=== PATIENT | female | born 1960 | race Two or more races ===

== ENCOUNTER 2016-11-16 09:31 | Inpatient (IN) | payer SELFPAY ==
[~2016-11-16] VITALS: Ht 152.4 cm; Wt 84.8 kg
[~2016-11-16 09:31] MED LIST: ASPI81TA9 PO; HYDR15CR20 TP; LISI5TAB PO; METF850T PO
[2016-11-16] MEDS ORDERED: KETOROLAC TROMETHAMINE 30 MG/ML SYRINGE. IV ONE (10:00)
[2016-11-16] MEDS ORDERED: MORPHINE SULFATE 10 MG/ML VIAL. IV ONE (10:00)
[2016-11-16] MEDS ORDERED: IV NORMAL SALINE 1000ML BAG 1,000 ML IV ONE ×2 (10:00→13:30)
[2016-11-16] MEDS ORDERED: ONDANSETRON PF 4 MG/2 ML VIAL. IV ONE (10:00)
[2016-11-16 10:12] LABS: BILIRUBIN,URINE NEGATIVE (NEG); GLUCOSE,URINE >=1000 mg/dL (NEG); NITRITE,URINE NEGATIVE (NEG)
[2016-11-16 10:19] LABS: NEG OBC UR NEG; POS OBC UR POS
[2016-11-16 10:25] LABS: BASO # 0.1 x10^3/uL (0.0-0.2); BASO % 1 % (0-3); EOS % 2 % (0-3); HEMOGLOBIN 14.8 g/dL (12.0-15.5); LYMPH # 1.5 x10^3/uL (1.0-4.8); LYMPH % 28 % (24-48); MEAN CORPUSCULAR HEMOGLOBIN 31 pg (25-35); MEAN CORPUSCULAR HGB CONC 34 g/dL (31-37); MEAN CORPUSCULAR VOLUME 90 fL (79-100); MONO % 11 % (0-9); NEUT % 58 % (31-73); PLATELET COUNT 347 x10^3/uL (140-400); RED BLOOD COUNT 4.77 x10^6/uL (3.50-5.40); RED CELL DISTRIBUTION WIDTH 13.6 % (11.5-14.5); WHITE BLOOD COUNT 5.4 x10^3/uL (4.0-11.0)
[2016-11-16 10:27] LABS: CALCIUM 8.8 mg/dL (8.5-10.1); CREATININE 0.6 mg/dL (0.6-1.0); GFR 103.4; POTASSIUM 4.1 mmol/L (3.5-5.1)
[2016-11-16 10:28] LABS: BACTERIA,URINE FEW /HPF (0-FEW); PROTEIN,URINE NEGATIVE (NEG-TRACE); RBC,URINE RARE /HPF (0-2); SQUAMOUS EPITHELIAL CELL,UR FEW /LPF; WBC,URINE RARE /HPF (0-4)
[2016-11-16 10:33] LABS: ALBUMIN 3.9 g/dL (3.4-5.0); ALBUMIN/GLOBULIN RATIO 0.8 (1.0-1.7); TOTAL BILIRUBIN 0.3 mg/dL (0.2-1.0); TOTAL PROTEIN 8.5 g/dL (6.4-8.2)
--- NOTE | 2016-11-16 12:11 | RAD ---
EXAM: Abdomen sonogram. HISTORY: Right upper quadrant pain. TECHNIQUE: Sonographic imaging of the abdomen was performed. COMPARISON: None. FINDINGS: The exam is limited due to body habitus and bowel gas. There is hepatic steatosis. There is focal fatty sparing or trace fluid along the gallbladder fossa. The common bile duct is upper normal in caliber for patient age, measuring 5.5 mm. There is cholelithiasis. There is gallbladder wall thickening. The right kidney is unremarkable. The inferior vena cava is patent. The pancreas is obscured due to bowel gas. IMPRESSION: 1. Cholelithiasis with gallbladder wall thickening suggesting possible superimposed cholecystitis. 2. Hepatic steatosis with focal fatty sparing along the gallbladder fossa or trace pericholecystic fluid.
--- NOTE | 2016-11-16 12:58 | PHYS DOC ---
Past Medical History Past Medical History: Diabetes-Type II, Hypertension Past Surgical History: No Surgical History Alcohol Use: None Drug Use: None Adult General Chief Complaint Chief Complaint: FLANK PAIN HPI HPI Patient is a 55 year old female with history of diabetes type 2, hypertension, who presents today with a right upper quadrant abdominal pain for 1 month. Patient is also complaining of nausea and vomiting and subjective fevers. Patient states she was diagnosed with gallbladder problems last year. PCP local clinic. Patient is [place]ian-speaking interpretation is provided by the son. Review of Systems Review of Systems Constitutional: Subjective fever Eyes: Denies change in visual acuity, redness, or eye pain [] HENT: Denies nasal congestion or sore throat [] Respiratory: Denies cough or shortness of breath [] Cardiovascular: No additional information not addressed in HPI [] GI: Right upper quadrant abdominal pain, nausea and vomiting : Denies dysuria or hematuria [] Musculoskeletal: Denies back pain or joint pain [] Integument: Denies rash or skin lesions [] Neurologic: Denies headache, focal weakness or sensory changes [] Endocrine: Denies polyuria or polydipsia [] Current Medications Current Medications Current Medications Medications (Trade) Dose Ordered Sig/Joslyn Start Time Stop Time Status Last Admin Dose Admin Acetaminophen (Tylenol) 1,000 mg 1X ONCE 11/16/16 13:15 11/16/16 13:16 UNV Ketorolac Tromethamine (Toradol) 30 mg 1X ONCE 11/16/16 10:00 11/16/16 10:01 DC 11/16/16 10:12 30 MG Levofloxacin/ Dextrose (LEVAQUIN 750mg PREMIX) 150 ml @ 100 mls/hr Q24H 11/16/16 13:15 11/21/16 13:14 UNV Morphine Sulfate 5 mg 5 mg 1X ONCE 11/16/16 10:00 11/16/16 10:01 DC 11/16/16 10:12 5 MG Ondansetron HCl (Zofran) 4 mg 1X ONCE 11/16/16 10:00 11/16/16 10:01 DC 11/16/16 10:11 4 MG Sodium Chloride 500 ml @ 1,000 mls/hr PRN Q30MIN PRN 11/16/16 13:15 Sodium Chloride (Iv Sodium Chloride 0.9% 1000ml Bag) 1,000 ml @ 1,000 mls/hr 1X ONCE 11/16/16 10:00 11/16/16 10:59 DC 11/16/16 10:10 1,000 MLS/HR Allergies Allergies Allergies Coded Allergies Type Severity Reaction Last Updated Verified No Known Drug Allergies 09/28/15 No Physical Exam Physical Exam Constitutional: Well developed, well nourished, no acute distress, non-toxic appearance. [] HENT: Normocephalic, atraumatic, bilateral external ears normal, oropharynx moist, no oral exudates, nose normal. [] Eyes: PERRLA, EOMI, conjunctiva normal, no discharge. [] Neck: Normal range of motion, no tenderness, supple, no stridor. [] Cardiovascular:Heart rate regular rhythm, no murmur [] Lungs & Thorax: Bilateral breath sounds clear to auscultation [] Abdomen: Bowel sounds normal, soft, moderate right upper quadrant tenderness with positive Contreras sign, no masses, no pulsatile masses. No right lower quadrant pain or tenderness. Skin: Warm, dry, no erythema, no rash. [] Back: No tenderness, no CVA tenderness. [] Extremities: No tenderness, no cyanosis, no clubbing, ROM intact, no edema. [] Neurologic: Alert and oriented X 3, normal motor function, normal sensory function, no focal deficits noted. [] Psychologic: Affect normal, judgement normal, mood normal. [] Current Patient Data Vital Signs Vital Signs Date Time Temp Pulse Resp B/P Pulse Ox O2 Delivery O2 Flow Rate FiO2 11/16/16 12:39 89 16 114/56 96 Room Air 11/16/16 10:49 99.6 99.6 Lab Values Laboratory Tests Test 11/16/16 09:45 11/16/16 10:01 Urine Collection Type Unknown Urine Color Yellow Urine Clarity Clear Urine pH 6.0 Urine Specific [place] 1.025 Urine Protein Negativemg/dL (NEG-TRACE) Urine Glucose (UA) >=1000mg/dL (NEG) Urine Ketones (Stick) Negativemg/dL (NEG) Urine Blood Negative (NEG) Urine Nitrite Negative (NEG) Urine Bilirubin Negative (NEG) Urine Urobilinogen Dipstick 1.0mg/dL (0.2 mg/dL) Urine Leukocyte Esterase Negative (NEG) Urine RBC Rare/HPF (0-2) Urine WBC Rare/HPF (0-4) Urine Squamous Epithelial Cells Few/LPF Urine Bacteria Few/HPF (0-FEW) Urine Mucus Slight/LPF Urine Test Negative (NEG) White Blood Count 5.4x10^3/uL (4.0-11.0) Red Blood Count 4.77x10^6/uL (3.50-5.40) Hemoglobin 14.8g/dL (12.0-15.5) Hematocrit 43.0% (36.0-47.0) Mean Corpuscular Volume 90fL (79-100) Mean Corpuscular Hemoglobin 31pg (25-35) Mean Corpuscular Hemoglobin Concent 34g/dL (31-37) Red Cell Distribution Width 13.6% (11.5-14.5) Platelet Count 347x10^3/uL (140-400) Neutrophils (%) (Auto) 58% (31-73) Lymphocytes (%) (Auto) 28% (24-48) Monocytes (%) (Auto) 11% (0-9) H Eosinophils (%) (Auto) 2% (0-3) Basophils (%) (Auto) 1% (0-3) Neutrophils # (Auto) 3.1x10^3uL (1.8-7.7) Lymphocytes # (Auto) 1.5x10^3/uL (1.0-4.8) Monocytes # (Auto) 0.6x10^3/uL (0.0-1.1) Eosinophils # (Auto) 0.1x10^3/uL (0.0-0.7) Basophils # (Auto) 0.1x10^3/uL (0.0-0.2) Sodium Level 138mmol/L (136-145) Potassium Level 4.1mmol/L (3.5-5.1) Chloride Level 102mmol/L (98-107) Carbon Dioxide Level 26mmol/L (21-32) Anion Gap 10 (6-14) Blood Urea Nitrogen 7mg/dL (7-20) Creatinine 0.6mg/dL (0.6-1.0) Estimated GFR (Cockcroft-Gault) 103.4 BUN/Creatinine Ratio 12 (6-20) Glucose Level 96mg/dL (70-99) Calcium Level 8.8mg/dL (8.5-10.1) Total Bilirubin 0.3mg/dL (0.2-1.0) Aspartate Amino Transferase (AST) 75U/L (15-37) H Alanine Aminotransferase (ALT) 121U/L (14-59) H Alkaline Phosphatase 108U/L (46-116) Total Protein 8.5g/dL (6.4-8.2) H Albumin 3.9g/dL (3.4-5.0) Albumin/Globulin Ratio 0.8 (1.0-1.7) L Lipase 106U/L (73-393) Laboratory Tests 11/16/16 10:01 Laboratory Tests 11/16/16 10:01 EKG EKG [] Radiology/Procedures Radiology/Procedures []PROCEDURE: ABDOMEN LTD EXAM: Abdomen sonogram. HISTORY: Right upper quadrant pain. TECHNIQUE: Sonographic imaging of the abdomen was performed. COMPARISON: None. FINDINGS: The exam is limited due to body habitus and bowel gas. There is hepatic steatosis. There is focal fatty sparing or trace fluid along the gallbladder fossa. The common bile duct is upper normal in caliber for patient age, measuring 5.5 mm. There is cholelithiasis. There is gallbladder wall thickening. The right kidney is unremarkable. The inferior vena cava is patent. The pancreas is obscured due to bowel gas. IMPRESSION: 1. Cholelithiasis with gallbladder wall thickening suggesting possible superimposed cholecystitis. 2. Hepatic steatosis with focal fatty sparing along the gallbladder fossa or trace pericholecystic fluid. DICTATED and SIGNED BY: SIENNA KLEIN MD DATE: 11/16/16 0847 CC: STACIA HARLEY SHOPPING INSPECTOR; NO PCP ~ Course & Med Decision Making Course & Med Decision Making Pertinent Labs and Imaging studies reviewed. (See chart for details) Patient with history of gallbladder disease presents today with right upper quadrant abdominal pain and vomiting as well as subjective fevers for 1 month. Negative urine hCG, UA negative for infection. CBC with no acute findings, CMP with AST of 75 ALT 125, alkaline phosphatase 108. Patient's temperature on arrival to the ED was 100.2, heart rate 103, respiration 20 room air, blood pressure 170/79, O2 sats 95% on room air. Abdominal ultrasound is positive for possible superimposed cholecystitis. 12:[address] Ahn who will follow-up with patient for general surgery. 13:[address] Ochoa and patient was admitted Sepsis protocol was initiated with weight based IV fluids and IV antibiotics. Dragon Disclaimer Dragon Disclaimer This electronic medical record was generated, in whole or in part, using a voice recognition dictation system. Departure Departure Impression: Primary Impression: Sepsis Additional Impressions: Fever Cholecystitis, acute Tachycardia Disposition: ADMITTED INPATIENT Admitting Physician: Carlos Ochoa Condition: STABLE Referrals: NO PCP (PCP) Problem Qualifiers Primary Impression: Sepsis Sepsis type: sepsis due to unspecified organism Qualified Code: A41.9 - Sepsis, unspecified organism Additional Impressions: Fever Fever type: unspecified Qualified Code: R50.9 - Fever, unspecified STACIA HARLEY SHOPPING INSPECTOR Nov 16, 2016 12:58
[2016-11-16] MEDS ORDERED: ACETAMINOPHEN 500 MG TABLET PO ONE (13:15)
[2016-11-16] MEDS ORDERED: IV NORMAL SALINE 500ML BAG 500 ML IV PRN (13:15)
[2016-11-16] MEDS ORDERED: ONDANSETRON PF 4 MG/2 ML VIAL. IV PRN ×2 (13:30→18:30)
[2016-11-16] MEDS ORDERED: ACETAMINOPHEN 325 MG TABLET. PO PRN ×2 (13:30→18:30)
[2016-11-16] MEDS ORDERED: METRONIDAZOLE 500mg PREMIX 100 ML IV ONE (13:45)
[2016-11-16] MEDS: MORPHINE SULFATE 4 MG/ML DISP.SYRIN. IV PRN (14:09)
[2016-11-16] MEDS: IV NORMAL SALINE 1000ML BAG 1,000 ML IV SCH ×5 (14:31→20:30)
[2016-11-16 16:15] VITALS: BP 133/55
[2016-11-16 17:35] VITALS: BP 107/56
[2016-11-16] MEDS ORDERED: CEFAZOLIN 2GM PREMIX 50 ML IV SCH (17:45)
--- NOTE | 2016-11-16 17:45 | PDOC ---
SURGICAL PROGRESS NOTE Subjective Brief Surgery Consult 55 yo F with calculous cholecystitis TO OR in Am for lap farshad with grams R/B/A d/w pt and pt's family Thanks for consult! [id number] Vital Signs Vital Signs Date Time Temp Pulse Resp B/P Pulse Ox O2 Delivery O2 Flow Rate FiO2 11/16/16 15:34 83 18 107/56 98 Room Air 11/16/16 14:18 98.3 98.3 Labs Laboratory Tests Test 11/16/16 09:45 11/16/16 10:01 11/16/16 13:55 Urine Collection Type Unknown Urine Color Yellow Urine Clarity Clear Urine pH 6.0 Urine Specific [place] 1.025 Urine Protein Negativemg/dL (NEG-TRACE) Urine Glucose (UA) >=1000mg/dL (NEG) Urine Ketones (Stick) Negativemg/dL (NEG) Urine Blood Negative (NEG) Urine Nitrite Negative (NEG) Urine Bilirubin Negative (NEG) Urine Urobilinogen Dipstick 1.0mg/dL (0.2 mg/dL) Urine Leukocyte Esterase Negative (NEG) Urine RBC Rare/HPF (0-2) Urine WBC Rare/HPF (0-4) Urine Squamous Epithelial Cells Few/LPF Urine Bacteria Few/HPF (0-FEW) Urine Mucus Slight/LPF Urine Test Negative (NEG) White Blood Count 5.4x10^3/uL (4.0-11.0) Red Blood Count 4.77x10^6/uL (3.50-5.40) Hemoglobin 14.8g/dL (12.0-15.5) Hematocrit 43.0% (36.0-47.0) Mean Corpuscular Volume 90fL (79-100) Mean Corpuscular Hemoglobin 31pg (25-35) Mean Corpuscular Hemoglobin Concent 34g/dL (31-37) Red Cell Distribution Width 13.6% (11.5-14.5) Platelet Count 347x10^3/uL (140-400) Neutrophils (%) (Auto) 58% (31-73) Lymphocytes (%) (Auto) 28% (24-48) Monocytes (%) (Auto) 11% (0-9) Eosinophils (%) (Auto) 2% (0-3) Basophils (%) (Auto) 1% (0-3) Neutrophils # (Auto) 3.1x10^3uL (1.8-7.7) Lymphocytes # (Auto) 1.5x10^3/uL (1.0-4.8) Monocytes # (Auto) 0.6x10^3/uL (0.0-1.1) Eosinophils # (Auto) 0.1x10^3/uL (0.0-0.7) Basophils # (Auto) 0.1x10^3/uL (0.0-0.2) Sodium Level 138mmol/L (136-145) Potassium Level 4.1mmol/L (3.5-5.1) Chloride Level 102mmol/L (98-107) Carbon Dioxide Level 26mmol/L (21-32) Anion Gap 10 (6-14) Blood Urea Nitrogen 7mg/dL (7-20) Creatinine 0.6mg/dL (0.6-1.0) Estimated GFR (Cockcroft-Gault) 103.4 BUN/Creatinine Ratio 12 (6-20) Glucose Level 96mg/dL (70-99) Calcium Level 8.8mg/dL (8.5-10.1) Total Bilirubin 0.3mg/dL (0.2-1.0) Aspartate Amino Transf (AST/SGOT) 75U/L (15-37) Alanine Aminotransferase (ALT/SGPT) 121U/L (14-59) Alkaline Phosphatase 108U/L (46-116) Total Protein 8.5g/dL (6.4-8.2) Albumin 3.9g/dL (3.4-5.0) Albumin/Globulin Ratio 0.8 (1.0-1.7) Lipase 106U/L (73-393) Lactic Acid Level 0.9mmol/L (0.4-2.0) Procalcitonin 0.10ng/mL (0.00-0.10) Laboratory Tests Test 11/16/16 09:45 11/16/16 10:01 11/16/16 13:55 Urine Collection Type Unknown Urine Color Yellow Urine Clarity Clear Urine pH 6.0 Urine Specific [place] 1.025 Urine Protein Negativemg/dL (NEG-TRACE) Urine Glucose (UA) >=1000mg/dL (NEG) Urine Ketones (Stick) Negativemg/dL (NEG) Urine Blood Negative (NEG) Urine Nitrite Negative (NEG) Urine Bilirubin Negative (NEG) Urine Urobilinogen Dipstick 1.0mg/dL (0.2 mg/dL) Urine Leukocyte Esterase Negative (NEG) Urine RBC Rare/HPF (0-2) Urine WBC Rare/HPF (0-4) Urine Squamous Epithelial Cells Few/LPF Urine Bacteria Few/HPF (0-FEW) Urine Mucus Slight/LPF Urine Test Negative (NEG) White Blood Count 5.4x10^3/uL (4.0-11.0) Red Blood Count 4.77x10^6/uL (3.50-5.40) Hemoglobin 14.8g/dL (12.0-15.5) Hematocrit 43.0% (36.0-47.0) Mean Corpuscular Volume 90fL (79-100) Mean Corpuscular Hemoglobin 31pg (25-35) Mean Corpuscular Hemoglobin Concent 34g/dL (31-37) Red Cell Distribution Width 13.6% (11.5-14.5) Platelet Count 347x10^3/uL (140-400) Neutrophils (%) (Auto) 58% (31-73) Lymphocytes (%) (Auto) 28% (24-48) Monocytes (%) (Auto) 11% (0-9) Eosinophils (%) (Auto) 2% (0-3) Basophils (%) (Auto) 1% (0-3) Neutrophils # (Auto) 3.1x10^3uL (1.8-7.7) Lymphocytes # (Auto) 1.5x10^3/uL (1.0-4.8) Monocytes # (Auto) 0.6x10^3/uL (0.0-1.1) Eosinophils # (Auto) 0.1x10^3/uL (0.0-0.7) Basophils # (Auto) 0.1x10^3/uL (0.0-0.2) Sodium Level 138mmol/L (136-145) Potassium Level 4.1mmol/L (3.5-5.1) Chloride Level 102mmol/L (98-107) Carbon Dioxide Level 26mmol/L (21-32) Anion Gap 10 (6-14) Blood Urea Nitrogen 7mg/dL (7-20) Creatinine 0.6mg/dL (0.6-1.0) Estimated GFR (Cockcroft-Gault) 103.4 BUN/Creatinine Ratio 12 (6-20) Glucose Level 96mg/dL (70-99) Calcium Level 8.8mg/dL (8.5-10.1) Total Bilirubin 0.3mg/dL (0.2-1.0) Aspartate Amino Transf (AST/SGOT) 75U/L (15-37) Alanine Aminotransferase (ALT/SGPT) 121U/L (14-59) Alkaline Phosphatase 108U/L (46-116) Total Protein 8.5g/dL (6.4-8.2) Albumin 3.9g/dL (3.4-5.0) Albumin/Globulin Ratio 0.8 (1.0-1.7) Lipase 106U/L (73-393) Lactic Acid Level 0.9mmol/L (0.4-2.0) Procalcitonin 0.10ng/mL (0.00-0.10) Problem List Problems Medical Problems: (1) Cholecystitis, acute Status: Acute (2) Fever Status: Acute (3) Sepsis Status: Acute (4) Tachycardia Status: Acute Problems: BRITTANI KIRKPATRICK MD Nov 16, 2016 17:44
--- NOTE | 2016-11-16 18:20 | PDOC1 ---
History and Physical Past Medical History Cardiovascular: No pertinent hx, HTN Pulmonary: No pertinent hx GI: No pertinent hx Past Surgical History Past Surgical History: No pertinent history Family History Family History: Other (cancer brother, father, DM) Social History Smoke: No ALCOHOL: none Drugs: None Current Problem List Problem List Problems Medical Problems: (1) Cholecystitis, acute Status: Acute (2) Fever Status: Acute (3) Sepsis Status: Acute (4) Tachycardia Status: Acute Current Medications Current Medications Current Medications Medications (Trade) Dose Ordered Sig/Joslyn Start Time Stop Time Status Last Admin Dose Admin Acetaminophen (Tylenol) 1,000 mg 1X ONCE 11/16/16 13:15 11/16/16 13:21 DC Acetaminophen 650 mg 650 mg PRN Q4HRS PRN 11/16/16 13:30 11/17/16 13:29 Cefazolin Sodium/ Dextrose (Ancef 2gm Premix) 50 ml @ 100 mls/hr 1X PREOP 11/16/16 17:45 Ketorolac Tromethamine (Toradol) 30 mg 1X ONCE 11/16/16 10:00 11/16/16 10:01 DC 11/16/16 10:12 30 MG Levofloxacin/ Dextrose (LEVAQUIN 750mg PREMIX) 150 ml @ 100 mls/hr Q24H 11/16/16 14:00 11/21/16 13:59 11/16/16 15:25 100 MLS/HR Metronidazole 100 ml @ 100 mls/hr 1X ONCE 11/16/16 13:45 11/16/16 14:44 DC 11/16/16 14:09 100 MLS/HR Morphine Sulfate 4 mg PRN Q2HR PRN 11/16/16 13:30 11/17/16 13:29 11/16/16 14:09 4 MG Morphine Sulfate 5 mg 5 mg 1X ONCE 11/16/16 10:00 11/16/16 10:01 DC 11/16/16 10:12 5 MG Ondansetron HCl (Zofran) 4 mg PRN Q8HRS PRN 11/16/16 13:30 11/17/16 13:29 11/16/16 14:08 4 MG Sodium Chloride 1,000 ml @ 125 mls/hr 1X ONCE 11/16/16 13:30 11/16/16 21:29 Sodium Chloride (Iv Sodium Chloride 0.9% 1000ml Bag) 1,000 ml @ 1,000 mls/hr 1X ONCE 11/16/16 10:00 11/16/16 10:59 DC 11/16/16 10:10 1,000 MLS/HR Allergies Allergies Allergies Coded Allergies Type Severity Reaction Last Updated Verified No Known Drug Allergies 09/28/15 No ROS Review of System CONSTITUTIONAL: No fever or chills EYES: No recent changes SKIN: No rash or itching CARDIOVASCULAR: No chest pain, syncope, palpitations, or edema RESPIRATORY: No SOB or cough GASTROINTESTINAL: abdominal pain NEUROLOGICAL: No headaches or weakness ENDOCRINE: No cold or heat intolerance GENITOURINARY: No urgency or frequency of urination MUSCULOSKELETAL: No back pain or joint pain LYMPHATICS: No enlarged lymph nodes PSYCHIATRIC: No anxiety or depression Physical Exam Physical Exam GEN.: No apparent distress. Alert and oriented. HEENT: Head is normocephalic, atraumatic NECK: Supple. NO JVD LUNGS: Clear to auscultation. HEART: RRR, S1, S2 present. Peripheral pulses intact ABDOMEN: Soft, RUQ tender. Positive bowel sounds. EXTREMITIES: Without any cyanosis. NEUROLOGIC: Normal speech, normal tone PSYCHIATRIC: Normal affect, normal mood. SKIN: No ulcerations Vitals Vitals Vital Signs Date Time Temp Pulse Resp B/P Pulse Ox O2 Delivery O2 Flow Rate FiO2 11/16/16 17:35 98.3 83 107/56 98 98.3 11/16/16 17:21 Room Air 11/16/16 16:15 18 Labs Labs Laboratory Tests Test 11/16/16 09:45 11/16/16 10:01 11/16/16 13:55 Urine Collection Type Unknown Urine Color Yellow Urine Clarity Clear Urine pH 6.0 Urine Specific [place] 1.025 Urine Protein Negativemg/dL (NEG-TRACE) Urine Glucose (UA) >=1000mg/dL (NEG) Urine Ketones (Stick) Negativemg/dL (NEG) Urine Blood Negative (NEG) Urine Nitrite Negative (NEG) Urine Bilirubin Negative (NEG) Urine Urobilinogen Dipstick 1.0mg/dL (0.2 mg/dL) Urine Leukocyte Esterase Negative (NEG) Urine RBC Rare/HPF (0-2) Urine WBC Rare/HPF (0-4) Urine Squamous Epithelial Cells Few/LPF Urine Bacteria Few/HPF (0-FEW) Urine Mucus Slight/LPF Urine Test Negative (NEG) White Blood Count 5.4x10^3/uL (4.0-11.0) Red Blood Count 4.77x10^6/uL (3.50-5.40) Hemoglobin 14.8g/dL (12.0-15.5) Hematocrit 43.0% (36.0-47.0) Mean Corpuscular Volume 90fL (79-100) Mean Corpuscular Hemoglobin 31pg (25-35) Mean Corpuscular Hemoglobin Concent 34g/dL (31-37) Red Cell Distribution Width 13.6% (11.5-14.5) Platelet Count 347x10^3/uL (140-400) Neutrophils (%) (Auto) 58% (31-73) Lymphocytes (%) (Auto) 28% (24-48) Monocytes (%) (Auto) 11% (0-9) Eosinophils (%) (Auto) 2% (0-3) Basophils (%) (Auto) 1% (0-3) Neutrophils # (Auto) 3.1x10^3uL (1.8-7.7) Lymphocytes # (Auto) 1.5x10^3/uL (1.0-4.8) Monocytes # (Auto) 0.6x10^3/uL (0.0-1.1) Eosinophils # (Auto) 0.1x10^3/uL (0.0-0.7) Basophils # (Auto) 0.1x10^3/uL (0.0-0.2) Sodium Level 138mmol/L (136-145) Potassium Level 4.1mmol/L (3.5-5.1) Chloride Level 102mmol/L (98-107) Carbon Dioxide Level 26mmol/L (21-32) Anion Gap 10 (6-14) Blood Urea Nitrogen 7mg/dL (7-20) Creatinine 0.6mg/dL (0.6-1.0) Estimated GFR (Cockcroft-Gault) 103.4 BUN/Creatinine Ratio 12 (6-20) Glucose Level 96mg/dL (70-99) Calcium Level 8.8mg/dL (8.5-10.1) Total Bilirubin 0.3mg/dL (0.2-1.0) Aspartate Amino Transf (AST/SGOT) 75U/L (15-37) Alanine Aminotransferase (ALT/SGPT) 121U/L (14-59) Alkaline Phosphatase 108U/L (46-116) Total Protein 8.5g/dL (6.4-8.2) Albumin 3.9g/dL (3.4-5.0) Albumin/Globulin Ratio 0.8 (1.0-1.7) Lipase 106U/L (73-393) Lactic Acid Level 0.9mmol/L (0.4-2.0) Procalcitonin 0.10ng/mL (0.00-0.10) Laboratory Tests Test 11/16/16 09:45 11/16/16 10:01 11/16/16 13:55 Urine Collection Type Unknown Urine Color Yellow Urine Clarity Clear Urine pH 6.0 Urine Specific [place] 1.025 Urine Protein Negativemg/dL (NEG-TRACE) Urine Glucose (UA) >=1000mg/dL (NEG) Urine Ketones (Stick) Negativemg/dL (NEG) Urine Blood Negative (NEG) Urine Nitrite Negative (NEG) Urine Bilirubin Negative (NEG) Urine Urobilinogen Dipstick 1.0mg/dL (0.2 mg/dL) Urine Leukocyte Esterase Negative (NEG) Urine RBC Rare/HPF (0-2) Urine WBC Rare/HPF (0-4) Urine Squamous Epithelial Cells Few/LPF Urine Bacteria Few/HPF (0-FEW) Urine Mucus Slight/LPF Urine Test Negative (NEG) White Blood Count 5.4x10^3/uL (4.0-11.0) Red Blood Count 4.77x10^6/uL (3.50-5.40) Hemoglobin 14.8g/dL (12.0-15.5) Hematocrit 43.0% (36.0-47.0) Mean Corpuscular Volume 90fL (79-100) Mean Corpuscular Hemoglobin 31pg (25-35) Mean Corpuscular Hemoglobin Concent 34g/dL (31-37) Red Cell Distribution Width 13.6% (11.5-14.5) Platelet Count 347x10^3/uL (140-400) Neutrophils (%) (Auto) 58% (31-73) Lymphocytes (%) (Auto) 28% (24-48) Monocytes (%) (Auto) 11% (0-9) Eosinophils (%) (Auto) 2% (0-3) Basophils (%) (Auto) 1% (0-3) Neutrophils # (Auto) 3.1x10^3uL (1.8-7.7) Lymphocytes # (Auto) 1.5x10^3/uL (1.0-4.8) Monocytes # (Auto) 0.6x10^3/uL (0.0-1.1) Eosinophils # (Auto) 0.1x10^3/uL (0.0-0.7) Basophils # (Auto) 0.1x10^3/uL (0.0-0.2) Sodium Level 138mmol/L (136-145) Potassium Level 4.1mmol/L (3.5-5.1) Chloride Level 102mmol/L (98-107) Carbon Dioxide Level 26mmol/L (21-32) Anion Gap 10 (6-14) Blood Urea Nitrogen 7mg/dL (7-20) Creatinine 0.6mg/dL (0.6-1.0) Estimated GFR (Cockcroft-Gault) 103.4 BUN/Creatinine Ratio 12 (6-20) Glucose Level 96mg/dL (70-99) Calcium Level 8.8mg/dL (8.5-10.1) Total Bilirubin 0.3mg/dL (0.2-1.0) Aspartate Amino Transf (AST/SGOT) 75U/L (15-37) Alanine Aminotransferase (ALT/SGPT) 121U/L (14-59) Alkaline Phosphatase 108U/L (46-116) Total Protein 8.5g/dL (6.4-8.2) Albumin 3.9g/dL (3.4-5.0) Albumin/Globulin Ratio 0.8 (1.0-1.7) Lipase 106U/L (73-393) Lactic Acid Level 0.9mmol/L (0.4-2.0) Procalcitonin 0.10ng/mL (0.00-0.10) VTE Prophylaxis Ordered VTE Prophylaxis Devices: Yes VTE Pharmacological Prophylaxi: Yes ANA ANTOINE MD Nov 16, 2016 18:19
[2016-11-16] MEDS ORDERED: hydrALAZINE 20 MG/ML VIAL. IVP PRN (18:30)
[2016-11-16] MEDS ORDERED: ALBUTEROL SULFATE 2.5 MG/3 ML NEBU. NEB PRN (18:30)
[2016-11-16] MEDS ORDERED: HYDROCODONE/APAP 5/325MG TABLET. PO PRN (18:30)
--- NOTE | 2016-11-16 18:56 | HP ---
ADMIT DATE: 11/16/2016 CHIEF COMPLAINT: Abdominal pain. HISTORY OF PRESENT ILLNESS: A 55-year-old female patient with prior history of hypertension and questionable diabetes presented to the ER with complaints of abdominal pain present nearly for 1 month; however, pain got worse for last 1 day which is intractable in nature and also had episodes of nausea, vomiting and fever. Upon arrival to the ER, the patient was diagnosed with acute cholecystitis and cholelithiasis. The patient was admitted to the hospital for pain control and surgical consultation. The patient speaks Turkish. Family member, grandson at bedside who speaks good [place]ayan interpreted the patient's remarks. PAST MEDICAL HISTORY, REVIEW OF SYSTEMS, PHYSICAL EXAMINATION: Please see my electronic H and P. LABORATORY FINDINGS: 1. Sodium 138, potassium ____, carbon dioxide 23, anion gap 10, BUN is 7, creatinine 0.6, AST 75, ALT 121, alkaline phosphatase 108. 2. WBC 5.4, hemoglobin 14.8, MCV is 90, MCHC is 34, platelets 347. 3. Urine: Specific gravity 1.025, protein negative, nitrites negative, bilirubin negative. IMAGING STUDIES: Ultrasound of the abdomen showed cholelithiasis with gallbladder wall thickening suggestive of possible supraumbilical cystitis. ASSESSMENT: 1. Cholelithiasis with cholecystitis, present on admission. 2. Hypertension, currently normotensive. 3. Questionable history of diabetes mellitus. 4. Obesity, body mass index 39. PLAN: 1. The patient has been admitted to med/surg floor and continue IV fluids at least 75 mL per hour. 2. General surgery has been consulted. 3. The patient is on Flagyl and Levaquin IV. 4. Anticipated laparoscopic cholecystectomy by Dr. Ahn in a.m. 5. Pain control with morphine 2 mg q. 2 hours. 6. DVT prophylaxis. ANA ANTOINE MD DR: FATEMEH/terry JOB#: [id number] / [id number] LUIS ENRIQUE
[2016-11-16 19:05] VITALS: BP 140/69
[2016-11-16] MEDS: METRONIDAZOLE 500mg PREMIX 100 ML IV SCH (22:23)
[2016-11-16 23:05] VITALS: BP 112/56
[2016-11-17] VITALS (12 sets, daily range): BP systolic 103–147; BP diastolic 54–89
[2016-11-17] MEDS: METRONIDAZOLE 500mg PREMIX 100 ML IV SCH ×3 (05:55→22:31)
[2016-11-17 06:13] LABS: CALCIUM 7.6 mg/dL (8.5-10.1); CREATININE 0.6 mg/dL (0.6-1.0); GFR 103.4; POTASSIUM 4.2 mmol/L (3.5-5.1)
[2016-11-17 07:01] LABS: BASO # 0.1 x10^3/uL (0.0-0.2); BASO % 1 % (0-3); EOS % 0 % (0-3); HEMATOCRIT 37.6 % (36.0-47.0); HEMOGLOBIN 12.6 g/dL (12.0-15.5); LYMPH # 2.1 x10^3/uL (1.0-4.8); LYMPH % 35 % (24-48); MEAN CORPUSCULAR HEMOGLOBIN 31 pg (25-35); MEAN CORPUSCULAR HGB CONC 33 g/dL (31-37); MEAN CORPUSCULAR VOLUME 93 fL (79-100); MONO % 10 % (0-9); NEUT % 53 % (31-73); PLATELET COUNT 282 x10^3/uL (140-400); RED BLOOD COUNT 4.03 x10^6/uL (3.50-5.40); RED CELL DISTRIBUTION WIDTH 13.5 % (11.5-14.5)
--- NOTE | 2016-11-17 07:11 | CONS ---
DATE OF CONSULTATION: 11/16/2016 REFERRING PHYSICIANS: Dr. Ochoa. Ms. Stacia Wyatt. Thank you for consult. CHIEF COMPLAINT: Right upper quadrant abdominal pain. DIAGNOSIS: Calculus cholecystitis. PLANNED PROCEDURE: Laparoscopic cholecystectomy with intraoperative cholangiogram. HISTORY OF PRESENT ILLNESS: This is a 55-year-old female with known history of gallstones, presents with a month to month and half of intermittent complaints of right upper quadrant abdominal pain. This worsened to the point where she presented to the Emergency Room for evaluation. She actually reports her pain has resolved currently, but has been feeling pretty significant pain previously. She is accompanied by her supportive family. ALLERGIES: She has no known drug allergies. MEDICATIONS: Includes aspirin, hydrocortisone, lisinopril and metformin. PAST MEDICAL HISTORY: Diabetes and hypertension. PAST SURGICAL HISTORY: None. SOCIAL HISTORY: No tobacco, no significant alcohol use. FAMILY HISTORY: Noncontributory. REVIEW OF SYSTEMS: All systems reviewed and negative except for HPI. PHYSICAL EXAMINATION: GENERAL: Well-developed, obese female, in no obvious distress. BMI is 39.1. VITAL SIGNS: She is afebrile. Vital signs within normal limits. HEENT: Normocephalic, anicteric sclerae. Oropharynx is clear. NECK: Supple. CHEST: Bilateral chest excursion. ABDOMEN: Soft, nondistended, minimal tenderness to palpation of right upper quadrant area. EXTREMITIES: No clubbing, cyanosis or edema. LABORATORY DATA: White blood cell count is normal. She has mild elevation of liver function test, bilirubin 0.3, glucose is 96. UA demonstrated greater than 1000 glucose. Ultrasound demonstrates cholelithiasis with gallbladder wall thickening and hepatic steatosis. IMPRESSION AND RECOMMENDATIONS: A 55-year-old female with calculus cholecystitis. We will plan on laparoscopic cholecystectomy with intraoperative cholangiogram tomorrow morning. The patient and patient's family are informed of the risks, benefits, alternatives to procedure, risks including but not limited to bleeding, infection, damage to surrounding structures, risk of anesthesia, risk of an open procedure. The patient and patient's family appeared to understand and their insightful questions were answered and they agreed to proceed. Thank you for allowing my participation in the care of this pleasant patient. BRITTANI KIRKPATRICK MD DR: YENNI/terry JOB#: [id number] / [id number] STACIA Thorpe APRN, SRINIVASA MD
[2016-11-17] MEDS ORDERED: FENTANYL PF 100 MCG/2 ML VIAL. ONE (07:18)
[2016-11-17] MEDS ORDERED: IOHEXOL 300 MG/ML 50 ML VIAL. ONE (07:27)
[2016-11-17] MEDS ORDERED: BUPIVACAINE-EPI 0.5%-1:200000 50 ML VIAL. ONE (07:27)
[2016-11-17] MEDS ORDERED: SURGICEL HEMOSTAT 2X3 EACH. ONE (07:27)
[2016-11-17] MEDS ORDERED: HEPARIN for IV BOLUS 10,000 UNIT/10 ML VIAL. ONE (07:27)
[2016-11-17] MEDS ORDERED: BISACODYL 10 MG SUPP.RECT ONE (07:28)
--- NOTE | 2016-11-17 08:04 | PDOC ---
SURGICAL PROGRESS NOTE Subjective 55 yo F with calculous cholecystitis TO OR for lap farshad with grams R/B/a d/w pt Vital Signs Vital Signs Date Time Temp Pulse Resp B/P Pulse Ox O2 Delivery O2 Flow Rate FiO2 11/17/16 03:13 99.5 84 18 103/54 97 Room Air 99.5 I&O Intake and Output 11/17/16 07:00 Intake Total 2100 ml Balance 2100 ml Intake IV Total 2100 ml # Voids 3 Labs Laboratory Tests Test 11/16/16 09:45 11/16/16 10:01 11/16/16 13:55 11/16/16 17:30 Urine Collection Type Unknown Urine Color Yellow Urine Clarity Clear Urine pH 6.0 Urine Specific [place] 1.025 Urine Protein Negativemg/dL (NEG-TRACE) Urine Glucose (UA) >=1000mg/dL (NEG) Urine Ketones (Stick) Negativemg/dL (NEG) Urine Blood Negative (NEG) Urine Nitrite Negative (NEG) Urine Bilirubin Negative (NEG) Urine Urobilinogen Dipstick 1.0mg/dL (0.2 mg/dL) Urine Leukocyte Esterase Negative (NEG) Urine RBC Rare/HPF (0-2) Urine WBC Rare/HPF (0-4) Urine Squamous Epithelial Cells Few/LPF Urine Bacteria Few/HPF (0-FEW) Urine Mucus Slight/LPF Urine Test Negative (NEG) White Blood Count 5.4x10^3/uL (4.0-11.0) Red Blood Count 4.77x10^6/uL (3.50-5.40) Hemoglobin 14.8g/dL (12.0-15.5) Hematocrit 43.0% (36.0-47.0) Mean Corpuscular Volume 90fL (79-100) Mean Corpuscular Hemoglobin 31pg (25-35) Mean Corpuscular Hemoglobin Concent 34g/dL (31-37) Red Cell Distribution Width 13.6% (11.5-14.5) Platelet Count 347x10^3/uL (140-400) Neutrophils (%) (Auto) 58% (31-73) Lymphocytes (%) (Auto) 28% (24-48) Monocytes (%) (Auto) 11% (0-9) Eosinophils (%) (Auto) 2% (0-3) Basophils (%) (Auto) 1% (0-3) Neutrophils # (Auto) 3.1x10^3uL (1.8-7.7) Lymphocytes # (Auto) 1.5x10^3/uL (1.0-4.8) Monocytes # (Auto) 0.6x10^3/uL (0.0-1.1) Eosinophils # (Auto) 0.1x10^3/uL (0.0-0.7) Basophils # (Auto) 0.1x10^3/uL (0.0-0.2) Sodium Level 138mmol/L (136-145) Potassium Level 4.1mmol/L (3.5-5.1) Chloride Level 102mmol/L (98-107) Carbon Dioxide Level 26mmol/L (21-32) Anion Gap 10 (6-14) Blood Urea Nitrogen 7mg/dL (7-20) Creatinine 0.6mg/dL (0.6-1.0) Estimated GFR (Cockcroft-Gault) 103.4 BUN/Creatinine Ratio 12 (6-20) Glucose Level 96mg/dL (70-99) Calcium Level 8.8mg/dL (8.5-10.1) Total Bilirubin 0.3mg/dL (0.2-1.0) Aspartate Amino Transf (AST/SGOT) 75U/L (15-37) Alanine Aminotransferase (ALT/SGPT) 121U/L (14-59) Alkaline Phosphatase 108U/L (46-116) Total Protein 8.5g/dL (6.4-8.2) Albumin 3.9g/dL (3.4-5.0) Albumin/Globulin Ratio 0.8 (1.0-1.7) Lipase 106U/L (73-393) Lactic Acid Level 0.9mmol/L (0.4-2.0) 0.7mmol/L (0.4-2.0) Procalcitonin 0.10ng/mL (0.00-0.10) Test 11/16/16 21:15 11/17/16 05:00 11/17/16 06:30 Glucose (Fingerstick) 105mg/dL (70-99) Sodium Level 139mmol/L (136-145) Potassium Level 4.2mmol/L (3.5-5.1) Chloride Level 104mmol/L (98-107) Carbon Dioxide Level 24mmol/L (21-32) Anion Gap 11 (6-14) Blood Urea Nitrogen 7mg/dL (7-20) Creatinine 0.6mg/dL (0.6-1.0) Estimated GFR (Cockcroft-Gault) 103.4 Glucose Level 41mg/dL (70-99) Calcium Level 7.6mg/dL (8.5-10.1) White Blood Count 6.0x10^3/uL (4.0-11.0) Red Blood Count 4.03x10^6/uL (3.50-5.40) Hemoglobin 12.6g/dL (12.0-15.5) Hematocrit 37.6% (36.0-47.0) Mean Corpuscular Volume 93fL (79-100) Mean Corpuscular Hemoglobin 31pg (25-35) Mean Corpuscular Hemoglobin Concent 33g/dL (31-37) Red Cell Distribution Width 13.5% (11.5-14.5) Platelet Count 282x10^3/uL (140-400) Neutrophils (%) (Auto) 53% (31-73) Lymphocytes (%) (Auto) 35% (24-48) Monocytes (%) (Auto) 10% (0-9) Eosinophils (%) (Auto) 0% (0-3) Basophils (%) (Auto) 1% (0-3) Neutrophils # (Auto) 3.2x10^3uL (1.8-7.7) Lymphocytes # (Auto) 2.1x10^3/uL (1.0-4.8) Monocytes # (Auto) 0.6x10^3/uL (0.0-1.1) Eosinophils # (Auto) 0.0x10^3/uL (0.0-0.7) Basophils # (Auto) 0.1x10^3/uL (0.0-0.2) Laboratory Tests Test 11/16/16 09:45 11/16/16 10:01 11/16/16 13:55 11/16/16 17:30 Urine Collection Type Unknown Urine Color Yellow Urine Clarity Clear Urine pH 6.0 Urine Specific [place] 1.025 Urine Protein Negativemg/dL (NEG-TRACE) Urine Glucose (UA) >=1000mg/dL (NEG) Urine Ketones (Stick) Negativemg/dL (NEG) Urine Blood Negative (NEG) Urine Nitrite Negative (NEG) Urine Bilirubin Negative (NEG) Urine Urobilinogen Dipstick 1.0mg/dL (0.2 mg/dL) Urine Leukocyte Esterase Negative (NEG) Urine RBC Rare/HPF (0-2) Urine WBC Rare/HPF (0-4) Urine Squamous Epithelial Cells Few/LPF Urine Bacteria Few/HPF (0-FEW) Urine Mucus Slight/LPF Urine Test Negative (NEG) White Blood Count 5.4x10^3/uL (4.0-11.0) Red Blood Count 4.77x10^6/uL (3.50-5.40) Hemoglobin 14.8g/dL (12.0-15.5) Hematocrit 43.0% (36.0-47.0) Mean Corpuscular Volume 90fL (79-100) Mean Corpuscular Hemoglobin 31pg (25-35) Mean Corpuscular Hemoglobin Concent 34g/dL (31-37) Red Cell Distribution Width 13.6% (11.5-14.5) Platelet Count 347x10^3/uL (140-400) Neutrophils (%) (Auto) 58% (31-73) Lymphocytes (%) (Auto) 28% (24-48) Monocytes (%) (Auto) 11% (0-9) Eosinophils (%) (Auto) 2% (0-3) Basophils (%) (Auto) 1% (0-3) Neutrophils # (Auto) 3.1x10^3uL (1.8-7.7) Lymphocytes # (Auto) 1.5x10^3/uL (1.0-4.8) Monocytes # (Auto) 0.6x10^3/uL (0.0-1.1) Eosinophils # (Auto) 0.1x10^3/uL (0.0-0.7) Basophils # (Auto) 0.1x10^3/uL (0.0-0.2) Sodium Level 138mmol/L (136-145) Potassium Level 4.1mmol/L (3.5-5.1) Chloride Level 102mmol/L (98-107) Carbon Dioxide Level 26mmol/L (21-32) Anion Gap 10 (6-14) Blood Urea Nitrogen 7mg/dL (7-20) Creatinine 0.6mg/dL (0.6-1.0) Estimated GFR (Cockcroft-Gault) 103.4 BUN/Creatinine Ratio 12 (6-20) Glucose Level 96mg/dL (70-99) Calcium Level 8.8mg/dL (8.5-10.1) Total Bilirubin 0.3mg/dL (0.2-1.0) Aspartate Amino Transf (AST/SGOT) 75U/L (15-37) Alanine Aminotransferase (ALT/SGPT) 121U/L (14-59) Alkaline Phosphatase 108U/L (46-116) Total Protein 8.5g/dL (6.4-8.2) Albumin 3.9g/dL (3.4-5.0) Albumin/Globulin Ratio 0.8 (1.0-1.7) Lipase 106U/L (73-393) Lactic Acid Level 0.9mmol/L (0.4-2.0) 0.7mmol/L (0.4-2.0) Procalcitonin 0.10ng/mL (0.00-0.10) Test 11/16/16 21:15 11/17/16 05:00 11/17/16 06:30 Glucose (Fingerstick) 105mg/dL (70-99) Sodium Level 139mmol/L (136-145) Potassium Level 4.2mmol/L (3.5-5.1) Chloride Level 104mmol/L (98-107) Carbon Dioxide Level 24mmol/L (21-32) Anion Gap 11 (6-14) Blood Urea Nitrogen 7mg/dL (7-20) Creatinine 0.6mg/dL (0.6-1.0) Estimated GFR (Cockcroft-Gault) 103.4 Glucose Level 41mg/dL (70-99) Calcium Level 7.6mg/dL (8.5-10.1) White Blood Count 6.0x10^3/uL (4.0-11.0) Red Blood Count 4.03x10^6/uL (3.50-5.40) Hemoglobin 12.6g/dL (12.0-15.5) Hematocrit 37.6% (36.0-47.0) Mean Corpuscular Volume 93fL (79-100) Mean Corpuscular Hemoglobin 31pg (25-35) Mean Corpuscular Hemoglobin Concent 33g/dL (31-37) Red Cell Distribution Width 13.5% (11.5-14.5) Platelet Count 282x10^3/uL (140-400) Neutrophils (%) (Auto) 53% (31-73) Lymphocytes (%) (Auto) 35% (24-48) Monocytes (%) (Auto) 10% (0-9) Eosinophils (%) (Auto) 0% (0-3) Basophils (%) (Auto) 1% (0-3) Neutrophils # (Auto) 3.2x10^3uL (1.8-7.7) Lymphocytes # (Auto) 2.1x10^3/uL (1.0-4.8) Monocytes # (Auto) 0.6x10^3/uL (0.0-1.1) Eosinophils # (Auto) 0.0x10^3/uL (0.0-0.7) Basophils # (Auto) 0.1x10^3/uL (0.0-0.2) Problem List Problems Medical Problems: (1) Cholecystitis, acute Status: Acute (2) Fever Status: Acute (3) Sepsis Status: Acute (4) Tachycardia Status: Acute Problems: BRITTANI KIRKPATRICK MD Nov 17, 2016 08:04
[2016-11-17] MEDS ORDERED: MORPHINE SULFATE 2 MG/ML DISP.SYRIN. IV PRN (08:15)
[2016-11-17] MEDS ORDERED: ONDANSETRON PF 4 MG/2 ML VIAL. IV PRN (08:15)
[2016-11-17] MEDS ORDERED: IV RINGERS,LACTATED 1000ML 1,000 ML IV SCH ×2 (08:15→09:24)
[2016-11-17] MEDS ORDERED: PROCHLORPERAZINE 10 MG/2 ML VIAL. IV PRN (08:15)
[2016-11-17] MEDS ORDERED: HYDROMORPHONE 2 MG/ML VIAL. IV PRN (08:15)
[2016-11-17] MEDS ORDERED: LIDOCAINE 1% 1 ML SYRINGE. ID PRN (08:15)
[2016-11-17] MEDS ORDERED: DEXAMETHASONE SOD PHOS 20 MG/5 ML VIAL. ONE (08:17)
[2016-11-17] MEDS ORDERED: LIDOCAINE 2% 100 MG/5 ML DISP.SYRIN. ONE (08:17)
[2016-11-17] MEDS ORDERED: ONDANSETRON PF 4 MG/2 ML VIAL. ONE (08:17)
[2016-11-17] MEDS ORDERED: DESFLURANE 61 TO 120 MINUTES IH ONE (08:17)
[2016-11-17] MEDS ORDERED: PROPOFOL 20 ML IV ONE (08:17)
[2016-11-17] MEDS ORDERED: GLYCOPYRROLATE 1 MG/5 ML VIAL. ONE (08:21)
[2016-11-17] MEDS ORDERED: NEOSTIGMINE METHYLSULFATE 5 MG/5 ML SYRINGE. ONE (08:21)
[2016-11-17] MEDS ORDERED: PHENYLEPHRINE in 0.9% NACL PF 1 MG/10 ML DISP.SYRIN. IV ONE (08:21)
[2016-11-17] MEDS ORDERED: CEFAZOLIN 1GM IVPB FOR OMNI 50 ML IV ONE (08:29)
[2016-11-17] MEDS: ENOXAPARIN 40 MG/0.4 ML DISP.SYRIN. SQ SCH (08:50)
[2016-11-17] MEDS: ASPIRIN ENTERIC COATED 81 MG TABLET.DR. PO SCH (08:51)
[2016-11-17] MEDS: LISINOPRIL 5 MG TABLET. PO SCH (08:51)
--- NOTE | 2016-11-17 08:53 | RAD ---
Intraoperative cholangiogram History: Laparoscopic cholecystectomy. Procedure: A total of 1 fluoroscopic images of the right upper quadrant were obtained. The cystic duct was cannulated with surgeon and contrast was injected. Total fluoroscopic time was 0.3 minutes. Findings: The common hepatic bile duct and common bile duct are patent, without evidence of intraluminal filling defect or obstruction. Contrast empties normally into the duodenum. Impression: Unremarkable intraoperative cholangiogram. No evidence of choledocholithiasis.
[2016-11-17] MEDS ORDERED: SEVOFLURANE 61 TO 120 MINUTES. IH ONE (09:01)
[2016-11-17] MEDS: FENTANYL PF 100 MCG/2 ML VIAL. IV PRN ×6 (09:27→10:43)
[2016-11-17] MEDS ORDERED: DEXTROSE 50% 25 GM / 50ML DISP.SYRIN. IV PRN (09:30)
[2016-11-17] MEDS ORDERED: HYDROCODONE/APAP 5/325MG TABLET. PO PRN (09:30)
[2016-11-17] MEDS ORDERED: ENOXAPARIN 40 MG/0.4 ML DISP.SYRIN. SQ SCH (09:30)
[2016-11-17] MEDS ORDERED: 0.9 % SODIUM CHLORIDE 10 ML DISP.SYRIN. IV PRN (09:30)
--- NOTE | 2016-11-17 09:31 | PDOC ---
BRIEF OPERATIVE NOTE Pre-Op Diagnosis Calculous cholecystitis Post-Op Diagnosis same Procedure Performed Lap farshad with grams Surgeon Anabelle Blood Loss 10 IV Fluid 400 Specimens Obtained GB Findings wnl IOC Complications none Additional Remarks [id number] BRITTANI KIRKPATRICK MD Nov 17, 2016 09:31
--- NOTE | 2016-11-17 10:32 | PDOC ---
PROGRESS NOTES Chief Complaint Chief Complaint 1. Cholelithiasis with cholecystitis, present on admission. 2. Hypertension, currently normotensive. 3. Questionable history of diabetes mellitus. 4. Obesity, body mass index 39. History of Present Illness History of Present Illness Out having lap farshad Vitals Vitals Vital Signs Date Time Temp Pulse Resp B/P Pulse Ox O2 Delivery O2 Flow Rate FiO2 11/17/16 10:14 12 138/74 97 Nasal Cannula 3 11/17/16 10:01 97.8 69 97.8 Physical Exam General: Alert, Oriented X3, Cooperative Heart: Regular rate, Normal S1, Normal S2 Lungs: Clear Abdomen: Soft Extremities: No clubbing, No cyanosis Skin: No rashes, No breakdown Labs LABS Laboratory Tests Test 11/16/16 13:55 11/16/16 17:30 11/16/16 21:15 11/17/16 05:00 Lactic Acid Level 0.9mmol/L (0.4-2.0) 0.7mmol/L (0.4-2.0) Procalcitonin 0.10ng/mL (0.00-0.10) Glucose (Fingerstick) 105mg/dL (70-99) Sodium Level 139mmol/L (136-145) Potassium Level 4.2mmol/L (3.5-5.1) Chloride Level 104mmol/L (98-107) Carbon Dioxide Level 24mmol/L (21-32) Anion Gap 11 (6-14) Blood Urea Nitrogen 7mg/dL (7-20) Creatinine 0.6mg/dL (0.6-1.0) Estimated GFR (Cockcroft-Gault) 103.4 Glucose Level 41mg/dL (70-99) Calcium Level 7.6mg/dL (8.5-10.1) Test 11/17/16 06:30 11/17/16 09:21 White Blood Count 6.0x10^3/uL (4.0-11.0) Red Blood Count 4.03x10^6/uL (3.50-5.40) Hemoglobin 12.6g/dL (12.0-15.5) Hematocrit 37.6% (36.0-47.0) Mean Corpuscular Volume 93fL (79-100) Mean Corpuscular Hemoglobin 31pg (25-35) Mean Corpuscular Hemoglobin Concent 33g/dL (31-37) Red Cell Distribution Width 13.5% (11.5-14.5) Platelet Count 282x10^3/uL (140-400) Neutrophils (%) (Auto) 53% (31-73) Lymphocytes (%) (Auto) 35% (24-48) Monocytes (%) (Auto) 10% (0-9) Eosinophils (%) (Auto) 0% (0-3) Basophils (%) (Auto) 1% (0-3) Neutrophils # (Auto) 3.2x10^3uL (1.8-7.7) Lymphocytes # (Auto) 2.1x10^3/uL (1.0-4.8) Monocytes # (Auto) 0.6x10^3/uL (0.0-1.1) Eosinophils # (Auto) 0.0x10^3/uL (0.0-0.7) Basophils # (Auto) 0.1x10^3/uL (0.0-0.2) Glucose (Fingerstick) 171mg/dL (70-99) Review of Systems Review of Systems unable to obtain Assessment and Plan Assessmemt and Plan will see post op CHart reviewed Problems Medical Problems: (1) Cholecystitis, acute Status: Acute (2) Fever Status: Acute (3) Sepsis Status: Acute (4) Tachycardia Status: Acute Problems: Comment Review of Relevant I have reviewed the following items britt (where applicable) has been applied. Labs Laboratory Tests Test 11/16/16 09:45 11/16/16 10:01 11/16/16 13:55 11/16/16 17:30 Urine Collection Type Unknown Urine Color Yellow Urine Clarity Clear Urine pH 6.0 Urine Specific [place] 1.025 Urine Protein Negativemg/dL (NEG-TRACE) Urine Glucose (UA) >=1000mg/dL (NEG) Urine Ketones (Stick) Negativemg/dL (NEG) Urine Blood Negative (NEG) Urine Nitrite Negative (NEG) Urine Bilirubin Negative (NEG) Urine Urobilinogen Dipstick 1.0mg/dL (0.2 mg/dL) Urine Leukocyte Esterase Negative (NEG) Urine RBC Rare/HPF (0-2) Urine WBC Rare/HPF (0-4) Urine Squamous Epithelial Cells Few/LPF Urine Bacteria Few/HPF (0-FEW) Urine Mucus Slight/LPF Urine Test Negative (NEG) White Blood Count 5.4x10^3/uL (4.0-11.0) Red Blood Count 4.77x10^6/uL (3.50-5.40) Hemoglobin 14.8g/dL (12.0-15.5) Hematocrit 43.0% (36.0-47.0) Mean Corpuscular Volume 90fL (79-100) Mean Corpuscular Hemoglobin 31pg (25-35) Mean Corpuscular Hemoglobin Concent 34g/dL (31-37) Red Cell Distribution Width 13.6% (11.5-14.5) Platelet Count 347x10^3/uL (140-400) Neutrophils (%) (Auto) 58% (31-73) Lymphocytes (%) (Auto) 28% (24-48) Monocytes (%) (Auto) 11% (0-9) Eosinophils (%) (Auto) 2% (0-3) Basophils (%) (Auto) 1% (0-3) Neutrophils # (Auto) 3.1x10^3uL (1.8-7.7) Lymphocytes # (Auto) 1.5x10^3/uL (1.0-4.8) Monocytes # (Auto) 0.6x10^3/uL (0.0-1.1) Eosinophils # (Auto) 0.1x10^3/uL (0.0-0.7) Basophils # (Auto) 0.1x10^3/uL (0.0-0.2) Sodium Level 138mmol/L (136-145) Potassium Level 4.1mmol/L (3.5-5.1) Chloride Level 102mmol/L (98-107) Carbon Dioxide Level 26mmol/L (21-32) Anion Gap 10 (6-14) Blood Urea Nitrogen 7mg/dL (7-20) Creatinine 0.6mg/dL (0.6-1.0) Estimated GFR (Cockcroft-Gault) 103.4 BUN/Creatinine Ratio 12 (6-20) Glucose Level 96mg/dL (70-99) Calcium Level 8.8mg/dL (8.5-10.1) Total Bilirubin 0.3mg/dL (0.2-1.0) Aspartate Amino Transf (AST/SGOT) 75U/L (15-37) Alanine Aminotransferase (ALT/SGPT) 121U/L (14-59) Alkaline Phosphatase 108U/L (46-116) Total Protein 8.5g/dL (6.4-8.2) Albumin 3.9g/dL (3.4-5.0) Albumin/Globulin Ratio 0.8 (1.0-1.7) Lipase 106U/L (73-393) Lactic Acid Level 0.9mmol/L (0.4-2.0) 0.7mmol/L (0.4-2.0) Procalcitonin 0.10ng/mL (0.00-0.10) Test 11/16/16 21:15 11/17/16 05:00 11/17/16 06:30 11/17/16 09:21 Glucose (Fingerstick) 105mg/dL (70-99) 171mg/dL (70-99) Sodium Level 139mmol/L (136-145) Potassium Level 4.2mmol/L (3.5-5.1) Chloride Level 104mmol/L (98-107) Carbon Dioxide Level 24mmol/L (21-32) Anion Gap 11 (6-14) Blood Urea Nitrogen 7mg/dL (7-20) Creatinine 0.6mg/dL (0.6-1.0) Estimated GFR (Cockcroft-Gault) 103.4 Glucose Level 41mg/dL (70-99) Calcium Level 7.6mg/dL (8.5-10.1) White Blood Count 6.0x10^3/uL (4.0-11.0) Red Blood Count 4.03x10^6/uL (3.50-5.40) Hemoglobin 12.6g/dL (12.0-15.5) Hematocrit 37.6% (36.0-47.0) Mean Corpuscular Volume 93fL (79-100) Mean Corpuscular Hemoglobin 31pg (25-35) Mean Corpuscular Hemoglobin Concent 33g/dL (31-37) Red Cell Distribution Width 13.5% (11.5-14.5) Platelet Count 282x10^3/uL (140-400) Neutrophils (%) (Auto) 53% (31-73) Lymphocytes (%) (Auto) 35% (24-48) Monocytes (%) (Auto) 10% (0-9) Eosinophils (%) (Auto) 0% (0-3) Basophils (%) (Auto) 1% (0-3) Neutrophils # (Auto) 3.2x10^3uL (1.8-7.7) Lymphocytes # (Auto) 2.1x10^3/uL (1.0-4.8) Monocytes # (Auto) 0.6x10^3/uL (0.0-1.1) Eosinophils # (Auto) 0.0x10^3/uL (0.0-0.7) Basophils # (Auto) 0.1x10^3/uL (0.0-0.2) Laboratory Tests Test 11/16/16 13:55 11/16/16 17:30 11/16/16 21:15 11/17/16 05:00 Lactic Acid Level 0.9mmol/L (0.4-2.0) 0.7mmol/L (0.4-2.0) Procalcitonin 0.10ng/mL (0.00-0.10) Glucose (Fingerstick) 105mg/dL (70-99) Sodium Level 139mmol/L (136-145) Potassium Level 4.2mmol/L (3.5-5.1) Chloride Level 104mmol/L (98-107) Carbon Dioxide Level 24mmol/L (21-32) Anion Gap 11 (6-14) Blood Urea Nitrogen 7mg/dL (7-20) Creatinine 0.6mg/dL (0.6-1.0) Estimated GFR (Cockcroft-Gault) 103.4 Glucose Level 41mg/dL (70-99) Calcium Level 7.6mg/dL (8.5-10.1) Test 11/17/16 06:30 11/17/16 09:21 White Blood Count 6.0x10^3/uL (4.0-11.0) Red Blood Count 4.03x10^6/uL (3.50-5.40) Hemoglobin 12.6g/dL (12.0-15.5) Hematocrit 37.6% (36.0-47.0) Mean Corpuscular Volume 93fL (79-100) Mean Corpuscular Hemoglobin 31pg (25-35) Mean Corpuscular Hemoglobin Concent 33g/dL (31-37) Red Cell Distribution Width 13.5% (11.5-14.5) Platelet Count 282x10^3/uL (140-400) Neutrophils (%) (Auto) 53% (31-73) Lymphocytes (%) (Auto) 35% (24-48) Monocytes (%) (Auto) 10% (0-9) Eosinophils (%) (Auto) 0% (0-3) Basophils (%) (Auto) 1% (0-3) Neutrophils # (Auto) 3.2x10^3uL (1.8-7.7) Lymphocytes # (Auto) 2.1x10^3/uL (1.0-4.8) Monocytes # (Auto) 0.6x10^3/uL (0.0-1.1) Eosinophils # (Auto) 0.0x10^3/uL (0.0-0.7) Basophils # (Auto) 0.1x10^3/uL (0.0-0.2) Glucose (Fingerstick) 171mg/dL (70-99) Medications Current Medications Sodium Chloride (Iv Sodium Chloride 0.9% 1000ml Bag) 1,000 ml @ 1,000 mls/hr 1X ONCE IV Last administered on 11/16/16 10:10; Start 11/16/16 at 10:00; Stop 11/16/16 at 10:59; Status DC Ondansetron HCl (Zofran) 4 mg 1X ONCE IV Last administered on 11/16/16 10:11 ; Start 11/16/16 at 10:00; Stop 11/16/16 at 10:01; Status DC Ketorolac Tromethamine (Toradol) 30 mg 1X ONCE IV Last administered on 10:12; Start 11/16/16 at 10:00; Stop 11/16/16 at 10:01; Status DC Morphine Sulfate 5 mg 5 mg 1X ONCE IV Last administered on 11/16/16 10:12; Start 11/16/16 at 10:00; Stop 11/16/16 at 10:01; Status DC Sodium Chloride 1,000 ml @ 682.5 mls/ hr Q1H28M IV Last administered on 16:54; Start 11/16/16 at 13:14; Stop 11/16/16 at 17:14; Status DC Sodium Chloride 500 ml @ 1,000 mls/hr PRN Q30MIN PRN IV SEE COMMENTS; Start at 13:15 Levofloxacin/ Dextrose (LEVAQUIN 750mg PREMIX) 150 ml @ 100 mls/hr Q24H IV Last administered on 11/16/16 15:25; Start 11/16/16 at 14:00; Stop 11/21/16 at 13:59 Acetaminophen (Tylenol) 1,000 mg 1X ONCE PO ; Start 11/16/16 at 13:15; Stop at 13:21; Status DC Ondansetron HCl (Zofran) 4 mg PRN Q8HRS PRN IV NAUSEA/VOMITING Last administered on 11/16/16 14:08; Start 11/16/16 at 13:30; Stop 11/17/16 at 08:15 ; Status DC Morphine Sulfate 4 mg PRN Q2HR PRN IV PAIN Last administered on 11/16/16 14:09 ; Start 11/16/16 at 13:30; Stop 11/17/16 at 13:29 Acetaminophen 650 mg 650 mg PRN Q4HRS PRN PO FEVER Last administered on 20:30; Start 11/16/16 at 13:30; Stop 11/17/16 at 13:29 Sodium Chloride 1,000 ml @ 125 mls/hr 1X ONCE IV ; Start 11/16/16 at 13:30; Stop 11/16/16 at 21:29; Status DC Metronidazole 100 ml @ 100 mls/hr Q8HRS IV Last administered on 11/17/16 05: 55; Start 11/16/16 at 22:00 Metronidazole 100 ml @ 100 mls/hr 1X ONCE IV Last administered on 11/16/16 14:09; Start 11/16/16 at 13:45; Stop 11/16/16 at 14:44; Status DC Cefazolin Sodium/ Dextrose (Ancef 2gm Premix) 50 ml @ 100 mls/hr 1X PREOP IV Last administered on 11/17/16 08:31; Start 11/16/16 at 17:45 Acetaminophen (Tylenol) 325 mg PRN Q6HRS PRN PO MILD PAIN / TEMP; Start at 18:30 Acetaminophen/ Hydrocodone Bitart (Lortab 5/325) 1 tab PRN Q6HRS PRN PO MODERATE TO SEVERE PAIN; Start 11/16/16 at 18:30 Hydralazine HCl (Apresoline) 10 mg PRN Q4HRS PRN IVP ELEVATED BP, SEE COMMENTS ; Start 11/16/16 at 18:30 Ondansetron HCl (Zofran) 4 mg PRN Q8HRS PRN IV NAUSEA/VOMITING; Start 11/16/16 at 18:30 Albuterol Sulfate 2.5 mg 2.5 mg PRN Q4HRS PRN NEB SHORTNESS OF BREATH Last administered on 11/16/16 20:43; Start 11/16/16 at 18:30 Sodium Chloride (Iv Sodium Chloride 0.9% 1000ml Bag) 1,000 ml @ 75 mls/hr [id number] IV Last administered on 11/16/16 20:30; Start 11/16/16 at 19:00 Aspirin (Ecotrin) 81 mg DAILY PO ; Start 11/17/16 at 09:00 Lisinopril (Prinivil) 5 mg DAILY PO ; Start 11/17/16 at 09:00 Enoxaparin Sodium (Lovenox 40mg Syringe) 40 mg DAILY SQ ; Start 11/17/16 at 09: 00 Fentanyl Citrate (Fentanyl 2ml Vial) 100 mcg STK-MED ONCE .ROUTE ; Start at 07:18; Stop 11/17/16 at 07:19; Status DC Iohexol (Omnipaque 300 Mg/ml) 50 ml STK-MED ONCE .ROUTE Last administered on 08:26; Start 11/17/16 at 07:27; Stop 11/17/16 at 07:28; Status DC Cellulose 1 each STK-MED ONCE .ROUTE ; Start 11/17/16 at 07:27; Stop 11/17/16 at 07:28; Status DC Bupivacaine HCl/ Epinephrine Bitart (Marcaine-Epi 0.5%-1:[id number]) 50 ml STK-MED ONCE .ROUTE Last administered on 11/17/16 08:26; Start 11/17/16 at 07:27; Stop 11/17/16 at 07:28; Status DC Heparin Sodium (Porcine) 10,000 unit STK-MED ONCE .ROUTE Last administered on 08:26; Start 11/17/16 at 07:27; Stop 11/17/16 at 07:28; Status DC Bisacodyl (Dulcolax Supp) 10 mg STK-MED ONCE .ROUTE Last administered on 08:26; Start 11/17/16 at 07:28; Stop 11/17/16 at 07:29; Status DC Ondansetron HCl (Zofran) 4 mg PRN Q6HRS PRN IV NAUSEA/VOMITING; Start 11/17/16 at 08:14 Ondansetron HCl (Zofran) 4 mg PRN Q6HRS PRN IV Nausea; Start 11/17/16 at 08:15 ; Stop 11/17/16 at 18:00 Fentanyl Citrate (Fentanyl 2ml Vial) 25 mcg PRN Q5MIN PRN IV MILD PAIN Last administered on 11/17/16 09:57; Start 11/17/16 at 08:15; Stop 11/17/16 at 18:00 Fentanyl Citrate (Fentanyl 2ml Vial) 50 mcg PRN Q5MIN PRN IV MODERATE PAIN Last administered on 11/17/16 10:13; Start 11/17/16 at 08:15; Stop 11/17/16 at 18:00 Morphine Sulfate 1 mg 1 mg PRN Q10MIN PRN IV SEVERE PAIN; Start 11/17/16 at 08: 15; Stop 11/17/16 at 18:00 Lactated Ringer's (Iv Lactated Ringers) 1,000 ml @ 30 mls/hr Q24H IV ; Start at 08:15; Stop 11/17/16 at 20:14 Lidocaine HCl 2 ml 1X PRN PRN ID IV START; Start 11/17/16 at 08:15; Stop at 18:00 Hydromorphone HCl (Dilaudid) 0.5 mg PRN Q10MIN PRN IV SEV PAIN,Second choice; Start 11/17/16 at 08:15; Stop 11/17/16 at 18:00 Prochlorperazine Edisylate (Compazine) 5 mg PACU PRN PRN IV NAUSEA; Start 11/17 at 08:15; Stop 11/17/16 at 18:00 Desflurane 60 ml 60 ml STK-MED ONCE IH ; Start 11/17/16 at 08:17; Stop 11/17/16 at 08:18; Status DC Propofol (Diprivan) 20 ml @ As Directed STK-MED ONCE IV ; Start 11/17/16 at 08: 17; Stop 11/17/16 at 08:18; Status DC Ondansetron HCl (Zofran) 4 mg STK-MED ONCE .ROUTE ; Start 11/17/16 at 08:17; Stop 11/17/16 at 08:18; Status DC Dexamethasone Sodium Phosphate (Decadron) 20 mg STK-MED ONCE .ROUTE ; Start at 08:17; Stop 11/17/16 at 08:18; Status DC Lidocaine HCl 100 mg STK-MED ONCE .ROUTE ; Start 11/17/16 at 08:17; Stop at 08:18; Status DC Phenylephrine HCl 1 mg STK-MED ONCE IV ; Start 11/17/16 at 08:21; Stop 11/17/16 at 08:22; Status DC Glycopyrrolate (Robinul) 1 mg STK-MED ONCE .ROUTE ; Start 11/17/16 at 08:21; Stop 11/17/16 at 08:22; Status DC Neostigmine Methylsulfate 5 mg 5 mg STK-MED ONCE .ROUTE ; Start 11/17/16 at 08: 21; Stop 11/17/16 at 08:22; Status DC Cefazolin Sodium (Ancef 1gm Ivpb For Omni) 50 ml @ As Directed STK-MED ONCE IV ; Start 11/17/16 at 08:29; Stop 11/17/16 at 08:30; Status DC Sevoflurane (Ultane) 60 ml STK-MED ONCE IH ; Start 11/17/16 at 09:01; Stop 11/17 at 09:02; Status DC Enoxaparin Sodium (Lovenox 40mg Syringe) 40 mg Q24H SQ ; Start 11/17/16 at 09:30 ; Status UNV Sodium Chloride 3 ml 3 ml QSHIFT PRN IV AFTER MEDS AND BLOOD DRAWS; Start 11/17 at 09:30 Lactated Ringer's (Iv Lactated Ringers) 1,000 ml @ 100 mls/hr Q10H IV ; Start 11/17/16 at 09:24 Dextrose 12.5 gm PRN Q15MIN PRN IV SEE COMMENTS; Start 11/17/16 at 09:30 Acetaminophen/ Hydrocodone Bitart (Lortab 5/325) 1 tab PRN Q4HRS PRN PO MILD PAIN; Start 11/17/16 at 09:30 Docusate Sodium (Colace) 100 mg BID PO ; Start 11/17/16 at 21:00 Active Scripts Active Hydrocortisone Valerate 15 Gm Cream..g. 1 Ayleen TP BID Aspirin Ec (Aspirin) 81 Mg Tablet.dr 81 Mg PO DAILY Glucophage (Metformin Hcl) 850 Mg Tablet 850 Mg PO BIDWMEALS Prinivil (Lisinopril) 5 Mg Tablet 5 Mg PO DAILY Vitals/I & O Vital Sign - Last 24 Hours 11/16/16 11/16/16 11/16/16 11/16/16 10:49 11:49 12:39 13:15 Temp 99.6 99.6 Pulse 90 92 89 87 Resp 18 18 16 18 B/P 114/65 121/54 114/56 109/53 Pulse Ox 95 95 96 95 O2 Delivery Room Air Room Air Room Air Room Air 11/16/16 11/16/16 11/16/16 11/16/16 14:09 14:18 14:50 15:34 Temp 98.3 98.3 Pulse 92 79 83 Resp 18 18 18 18 B/P 114/61 107/56 107/56 Pulse Ox 96 96 98 98 O2 Delivery Room Air Room Air Room Air Room Air 11/16/16 11/16/16 11/16/16 11/16/16 16:15 17:21 17:35 19:05 Temp 98.1 98.3 102.4 98.1 98.3 102.4 Pulse 81 83 101 Resp 18 18 B/P 133/55 107/56 140/69 Pulse Ox 98 98 95 O2 Delivery Room Air Room Air Room Air 11/16/16 11/16/16 11/16/16 11/17/16 20:00 20:48 23:05 03:13 Temp 99.0 99.5 99.0 99.5 Pulse 72 84 Resp 18 18 B/P 112/56 103/54 Pulse Ox 98 96 97 O2 Delivery Room Air Room Air Room Air Room Air 11/17/16 11/17/16 11/17/16 11/17/16 09:15 09:25 09:27 09:29 Temp 99.4 99.4 Pulse 63 59 Resp 12 12 B/P 176/70 135/64 Pulse Ox 99 94 98 O2 Delivery Simple Mask Mask Room Air Nasal Cannula O2 Flow Rate 10 10 3 11/17/16 11/17/16 11/17/16 11/17/16 09:44 09:47 09:57 10:01 Temp 97.8 97.8 Pulse 59 69 Resp 12 12 12 12 B/P 120/62 141/78 Pulse Ox 98 98 98 98 O2 Delivery Nasal Cannula Nasal Cannula Nasal Cannula O2 Flow Rate 3 2.0 3.0 3 11/17/16 11/17/16 11/17/16 10:02 10:13 10:14 Resp 12 12 B/P 138/74 Pulse Ox 98 97 O2 Delivery Nasal Cannula Nasal Cannula Nasal Cannula O2 Flow Rate 3 3.0 3 Intake and Output 11/16/16 11/16/16 11/17/16 15:00 23:00 07:00 Intake Total 1000 ml 1100 ml Balance 1000 ml 1100 ml RADHA BELL MD Nov 17, 2016 10:32
[2016-11-17] MEDS: ONDANSETRON PF 4 MG/2 ML VIAL. IV PRN ×2 (10:50→18:30)
[2016-11-17] MEDS: MORPHINE SULFATE 4 MG/ML DISP.SYRIN. IV PRN ×2 (10:50→16:21)
--- NOTE | 2016-11-17 12:10 | OP ---
DATE OF SURGERY: 11/17/2016 REFERRING PHYSICIANS: Dr. Ochoa. Ms. Stacia Wyatt. PREOPERATIVE DIAGNOSES: Calculous cholecystitis. POSTOPERATIVE DIAGNOSIS: Calculous cholecystitis. PROCEDURES: Laparoscopic cholecystectomy with intraoperative cholangiogram. SURGEON: Gerardo Ahn M.D. ESTIMATED BLOOD LOSS: 5 mL. FLUIDS: 400 mL. COMPLICATIONS: None. FINDINGS: Large gallstone, normal-appearing intraoperative cholangiogram. INDICATIONS: This is a 55-year-old female presents with complaints of epigastric right upper quadrant abdominal pain. Imaging is concerning for calculous cholecystitis. Subsequently, it was felt the patient best be served by laparoscopic cholecystectomy with intraoperative cholangiogram. The patient and patient's family were informed of the risks, benefits, alternatives of procedure, risks including but not limited to bleeding, infection, damage to surrounding structures, risk of anesthesia, risk of an open procedure. The patient and patient's family appeared to understand, their insightful questions were answered and they agreed to proceed. PROCEDURE: After obtaining informed consent, the patient was taken to the operating room, induced under general endotracheal anesthetic. The patient was prepped and draped in usual fashion in the anterior abdominal wall. A 0.5% Marcaine with epinephrine was injected in the supraumbilical area and incision was made using 15 blade scalpel. A 5-mm nonbladed trocar was introduced in the abdominal cavity under direct vision of laparoscope. Pneumoperitoneum was established. Additional 12 port was placed in the epigastrium, another 5 mm port was placed in the right upper quadrant, all under direct vision of the laparoscope. The abdominal cavity was explored. The liver was normal in appearance. Gallbladder had some mild induration to it. The visualized portion of viscera are normal in appearance. There was no evidence of trocar injury. Subsequently, the gallbladder was grasped. The triangle of Calot was exposed. The peritoneum overlying the cystic duct was taken down using blunt dissection. Circumferential dissection was performed of the cystic duct at cystic duct infundibulum junction. Critical view was obtained, which demonstrated cystic duct and cystic artery as the only structures going to the gallbladder. Clips were placed on the cystic artery and clip was placed on the cystic duct infundibulum junction. Incision was made in the cystic duct using EndoShears. Cholangiogram catheter was introduced and cholangiogram was obtained. Cholangiogram demonstrated normal-appearing hepatic ducts, normal-appearing common bile free extravasation into the duodenum. Cholangiogram catheter was removed. Multiple clips were placed on cystic duct stump including Hem-o-katty and the cystic duct was divided. Cystic artery was divided between the previously placed clips. The gallbladder was taken off the gallbladder fossa sharply using electrocautery. The gallbladder was placed in EndoCatch bag and brought out through the epigastric port and passed off field and sent to pathology for evaluation. The abdominal cavity was copiously irrigated with normal saline solution. There was no evidence of bleeding or bile leak at the time of closure. All ports removed under direct vision of laparoscope. There was no evidence port site bleeding. Fascial defect in the epigastrium was reapproximated using interrupted 0 Vicryl stitch using Endo Close. All skin incisions were reapproximated using multiple interrupted 4-0 Monocryl in subcuticular fashion. Sterile dressing was placed over all wounds. The patient tolerated procedure well and was discharged to recovery room in stable condition. All counts correct. There were no immediate complications. GERARDO AHN MD DR: YENNI/terry JOB#: [id number] / [id number] STACIA Thorpe APRN, SRINIVASA MD
[2016-11-17] MEDS: IV NORMAL SALINE 1000ML BAG 1,000 ML IV SCH (21:10)
[2016-11-17] MEDS: DOCUSATE SODIUM 100 MG CAPSULE PO SCH (21:10)
[2016-11-18] MEDS: MORPHINE SULFATE 4 MG/ML DISP.SYRIN. IV PRN ×3 (00:23→15:35)
[2016-11-18] MEDS: ONDANSETRON PF 4 MG/2 ML VIAL. IV PRN ×2 (00:24→06:18)
[2016-11-18 03:00] VITALS: BP 142/73
[2016-11-18] MEDS: METRONIDAZOLE 500mg PREMIX 100 ML IV SCH ×2 (06:17→13:49)
--- NOTE | 2016-11-18 06:27 | ACF ---
Admission Forms Criteria GALLBLADDER OR BILE DUCT INFLAMMATION OR STONE Clinical Indications for Admission to Inpatient Care ( Place 'X' for any and all applicable criteria): Admission is indicated for patients with ANY ONE of the following(1)(2)(3)(4)(5) : [X]I. Acute cholecystitis as indicated by ALL of the following: [X]a) Right upper quadrant pain, mass, or tenderness [X]b) Systemic signs of inflammation indicated by ANY ONE of the following: [X]i) Fever [ ]ii) C-reactive protein level greater than 10 mg/L (95 nmol/L) [ ]iii) White blood cell count greater than 10,000/mm3 (10 x109/L) or less than 4000/mm3 (4 x109/L) [ II. Inpatient admission required rather than observation care (Also use Gallbladder or Bile Duct Inflammation or Stone: Observation Care as appropriate) because of ANY ONE of the following: [ ]a) Common bile duct obstruction diagnosed [ ]b) Vomiting that is severe or persistent [ ]c) Severe pain requiring acute inpatient management [ ]d) Signs of intestinal obstruction or peritonitis [A] [ ]e) Severe electrolyte abnormalities requiring inpatient care [ ]f) Absent bowel sounds with complete ileus(8) [ ]g) Hemodynamic instability [ ]h) High fever or infection requiring inpatient admission as indicated by ANY ONE of the following (9): [ ]1) Appropriate outpatient or observation care antimicrobial Treatment. unavailable, not effective, or not feasible [ ]2) Temperature greater than 104.9 degrees F (40.5 degrees C) (oral) [ ]3) Temperature greater than 103.1 degrees F (39.5 degrees C) (oral) or less than 96.8 degrees F (36 degrees C) (rectal) that does not respond to all emergency treatment measures [ ]4) Documented bacteremia [ ]i) IV fluid to replace significant ongoing losses (greater than 3 L/m2 per day) [ ]j) Percutaneous or open drainage (eg, abscess, biliary tract) procedures [ ]k) Immediate inpatient surgery [ ]l) Other condition, treatment or monitoring requiring inpatient admission [ ]III. Acute cholangitis as indicated by ALL of the following(9)(10): [ ]a) Systemic signs of inflammation indicated by ANY ONE of the following: [ ]i) Fever [ ]ii) C-reactive protein level greater than 10 mg/L (95 nmol /L) [ ]iii) White blood cell count greater than 10,000/mm3 (10 x109/L) or less than 4000/mm3 (4 x109/L) [ ]b) Evidence of common bile duct disease indicated by ANY ONE of the following: [ ]i) Total serum bilirubin level greater than or equal to 2 mg/dL (34 micromoles/L) [ ]ii) Liver function test (alkaline phosphatase (ALP), r- glutamyltransferase (GGT), aspartate aminotransferase (AST), or alanine aminotransferase (ALT)) greater than 1.5 times the upper limit of normal[B] [ ]iii) Hepatobiliary imaging showing biliary dilatation or evidence of etiology (eg, stricture, stone, previously placed stent) Extended stay beyond goal length of stay may be needed for (1)(2)): [ ]a) Bacteremia or Hemodynamic instability [ ]b) Cholecystectomy [ ]c) Other surgical procedure(24) [ ]d) Percutaneous or endoscopic ultrasound-guided cholecystostomy The original [facility] content created by [facility] has been revised. The portions of the content which have been revised are identified through the use of italic text or in bold, and [facility] has neither reviewed nor approved the modified material. All other unmodified content is copyright [facility]. Please see references footnoted in the original [facility] edition 2016 Admission Criteria Met?: Yes MARTHA BOLDEN Nov 18, 2016 06:27
[2016-11-18 07:00] VITALS: BP 124/61
[2016-11-18] MEDS ORDERED: TRIAMCINOLONE ACETONIDE 0.1% TOPICAL CREAM 15GM TUBE. TP SCH (09:00)
[2016-11-18] MEDS ORDERED: METFORMIN 850 MG TABLET PO SCH (09:00)
[2016-11-18] MEDS: DOCUSATE SODIUM 100 MG CAPSULE PO SCH (09:55)
[2016-11-18] MEDS: ASPIRIN ENTERIC COATED 81 MG TABLET.DR. PO SCH (09:55)
[2016-11-18] MEDS: LISINOPRIL 5 MG TABLET. PO SCH (09:55)
[2016-11-18] MEDS: ENOXAPARIN 40 MG/0.4 ML DISP.SYRIN. SQ SCH (09:56)
[2016-11-18] MEDS ORDERED: DEXTROSE 50% 25 GM / 50ML DISP.SYRIN. IV PRN (10:15)
--- NOTE | 2016-11-18 10:17 | PDOC ---
PROGRESS NOTES Chief Complaint Chief Complaint 1. Cholelithiasis with cholecystitis, present on admission. s/p lap farshad POD # 1 2. Hypertension, currently normotensive. 3. DM 2 on metformin 4. Obesity, body mass index 39. History of Present Illness History of Present Illness BS 170s On metformin at home Eating reg tray no probs AMbulating per family SOme post op tenderness Dressing inspected Vitals Vitals Vital Signs Date Time Temp Pulse Resp B/P Pulse Ox O2 Delivery O2 Flow Rate FiO2 11/18/16 09:55 62 124/61 11/18/16 07:00 97.9 18 96 Room Air 97.9 11/18/16 03:02 1.0 Physical Exam General: Alert, Oriented X3, Cooperative Heart: Regular rate, Normal S1, Normal S2 Lungs: Clear Abdomen: Soft Extremities: No clubbing, No cyanosis Skin: No rashes, No breakdown Labs LABS Laboratory Tests Test 11/17/16 11:41 11/17/16 16:35 11/17/16 20:00 Glucose (Fingerstick) 169mg/dL (70-99) 170mg/dL (70-99) 134mg/dL (70-99) Review of Systems Review of Systems no CP< SOA< no fevers Assessment and Plan Assessmemt and Plan Dc ok when ok with GS Will leave Rx in chart Ok to resume home metformin and add SSI Problems Medical Problems: (1) Cholecystitis, acute Status: Acute (2) Fever Status: Acute (3) Sepsis Status: Acute (4) Tachycardia Status: Acute Problems: Comment Review of Relevant I have reviewed the following items britt (where applicable) has been applied. Labs Laboratory Tests Test 11/16/16 13:55 11/16/16 17:30 11/16/16 21:15 11/17/16 05:00 Lactic Acid Level 0.9mmol/L (0.4-2.0) 0.7mmol/L (0.4-2.0) Procalcitonin 0.10ng/mL (0.00-0.10) Glucose (Fingerstick) 105mg/dL (70-99) Sodium Level 139mmol/L (136-145) Potassium Level 4.2mmol/L (3.5-5.1) Chloride Level 104mmol/L (98-107) Carbon Dioxide Level 24mmol/L (21-32) Anion Gap 11 (6-14) Blood Urea Nitrogen 7mg/dL (7-20) Creatinine 0.6mg/dL (0.6-1.0) Estimated GFR (Cockcroft-Gault) 103.4 Glucose Level 41mg/dL (70-99) Calcium Level 7.6mg/dL (8.5-10.1) Test 11/17/16 06:30 11/17/16 09:21 11/17/16 11:41 11/17/16 16:35 White Blood Count 6.0x10^3/uL (4.0-11.0) Red Blood Count 4.03x10^6/uL (3.50-5.40) Hemoglobin 12.6g/dL (12.0-15.5) Hematocrit 37.6% (36.0-47.0) Mean Corpuscular Volume 93fL (79-100) Mean Corpuscular Hemoglobin 31pg (25-35) Mean Corpuscular Hemoglobin Concent 33g/dL (31-37) Red Cell Distribution Width 13.5% (11.5-14.5) Platelet Count 282x10^3/uL (140-400) Neutrophils (%) (Auto) 53% (31-73) Lymphocytes (%) (Auto) 35% (24-48) Monocytes (%) (Auto) 10% (0-9) Eosinophils (%) (Auto) 0% (0-3) Basophils (%) (Auto) 1% (0-3) Neutrophils # (Auto) 3.2x10^3uL (1.8-7.7) Lymphocytes # (Auto) 2.1x10^3/uL (1.0-4.8) Monocytes # (Auto) 0.6x10^3/uL (0.0-1.1) Eosinophils # (Auto) 0.0x10^3/uL (0.0-0.7) Basophils # (Auto) 0.1x10^3/uL (0.0-0.2) Glucose (Fingerstick) 171mg/dL (70-99) 169mg/dL (70-99) 170mg/dL (70-99) Test 11/17/16 20:00 Glucose (Fingerstick) 134mg/dL (70-99) Laboratory Tests Test 11/17/16 11:41 11/17/16 16:35 11/17/16 20:00 Glucose (Fingerstick) 169mg/dL (70-99) 170mg/dL (70-99) 134mg/dL (70-99) Medications Current Medications Sodium Chloride (Iv Sodium Chloride 0.9% 1000ml Bag) 1,000 ml @ 1,000 mls/hr 1X ONCE IV Last administered on 11/16/16 10:10; Start 11/16/16 at 10:00; Stop 11/16/16 at 10:59; Status DC Ondansetron HCl (Zofran) 4 mg 1X ONCE IV Last administered on 11/16/16 10:11 ; Start 11/16/16 at 10:00; Stop 11/16/16 at 10:01; Status DC Ketorolac Tromethamine (Toradol) 30 mg 1X ONCE IV Last administered on 10:12; Start 11/16/16 at 10:00; Stop 11/16/16 at 10:01; Status DC Morphine Sulfate 5 mg 5 mg 1X ONCE IV Last administered on 11/16/16 10:12; Start 11/16/16 at 10:00; Stop 11/16/16 at 10:01; Status DC Sodium Chloride 1,000 ml @ 682.5 mls/ hr Q1H28M IV Last administered on 16:54; Start 11/16/16 at 13:14; Stop 11/16/16 at 17:14; Status DC Sodium Chloride 500 ml @ 1,000 mls/hr PRN Q30MIN PRN IV SEE COMMENTS; Start at 13:15 Levofloxacin/ Dextrose (LEVAQUIN 750mg PREMIX) 150 ml @ 100 mls/hr Q24H IV Last administered on 11/17/16 14:15; Start 11/16/16 at 14:00; Stop 11/21/16 at 13:59 Acetaminophen (Tylenol) 1,000 mg 1X ONCE PO ; Start 11/16/16 at 13:15; Stop at 13:21; Status DC Ondansetron HCl (Zofran) 4 mg PRN Q8HRS PRN IV NAUSEA/VOMITING Last administered on 11/16/16 14:08; Start 11/16/16 at 13:30; Stop 11/17/16 at 08:15 ; Status DC Morphine Sulfate 4 mg PRN Q2HR PRN IV PAIN Last administered on 11/17/16 10:50 ; Start 11/16/16 at 13:30; Stop 11/17/16 at 13:29; Status DC Acetaminophen 650 mg 650 mg PRN Q4HRS PRN PO FEVER Last administered on 20:30; Start 11/16/16 at 13:30; Stop 11/17/16 at 13:29; Status DC Sodium Chloride 1,000 ml @ 125 mls/hr 1X ONCE IV ; Start 11/16/16 at 13:30; Stop 11/16/16 at 21:29; Status DC Metronidazole 100 ml @ 100 mls/hr Q8HRS IV Last administered on 11/18/16 06: 17; Start 11/16/16 at 22:00 Metronidazole 100 ml @ 100 mls/hr 1X ONCE IV Last administered on 11/16/16 14:09; Start 11/16/16 at 13:45; Stop 11/16/16 at 14:44; Status DC Cefazolin Sodium/ Dextrose (Ancef 2gm Premix) 50 ml @ 100 mls/hr 1X PREOP IV Last administered on 11/17/16 08:31; Start 11/16/16 at 17:45; Stop 11/17/16 at 15:30; Status DC Acetaminophen (Tylenol) 325 mg PRN Q6HRS PRN PO MILD PAIN / TEMP; Start at 18:30 Acetaminophen/ Hydrocodone Bitart (Lortab 5/325) 1 tab PRN Q6HRS PRN PO MODERATE TO SEVERE PAIN; Start 11/16/16 at 18:30; Stop 11/17/16 at 15:31; Status DC Hydralazine HCl (Apresoline) 10 mg PRN Q4HRS PRN IVP ELEVATED BP, SEE COMMENTS ; Start 11/16/16 at 18:30 Ondansetron HCl (Zofran) 4 mg PRN Q8HRS PRN IV NAUSEA/VOMITING; Start 11/16/16 at 18:30; Stop 11/17/16 at 15:31; Status DC Albuterol Sulfate 2.5 mg 2.5 mg PRN Q4HRS PRN NEB SHORTNESS OF BREATH Last administered on 11/16/16 20:43; Start 11/16/16 at 18:30 Sodium Chloride (Iv Sodium Chloride 0.9% 1000ml Bag) 1,000 ml @ 75 mls/hr [id number] IV Last administered on 11/17/16 21:10; Start 11/16/16 at 19:00 Aspirin (Ecotrin) 81 mg DAILY PO Last administered on 11/18/16 09:55; Start at 09:00 Lisinopril (Prinivil) 5 mg DAILY PO Last administered on 11/18/16 09:55; Start 11/17/16 at 09:00 Enoxaparin Sodium (Lovenox 40mg Syringe) 40 mg DAILY SQ Last administered on 09:56; Start 11/17/16 at 09:00 Fentanyl Citrate (Fentanyl 2ml Vial) 100 mcg STK-MED ONCE .ROUTE ; Start at 07:18; Stop 11/17/16 at 07:19; Status DC Iohexol (Omnipaque 300 Mg/ml) 50 ml STK-MED ONCE .ROUTE Last administered on 08:26; Start 11/17/16 at 07:27; Stop 11/17/16 at 07:28; Status DC Cellulose 1 each STK-MED ONCE .ROUTE ; Start 11/17/16 at 07:27; Stop 11/17/16 at 07:28; Status DC Bupivacaine HCl/ Epinephrine Bitart (Marcaine-Epi 0.5%-1:[id number]) 50 ml STK-MED ONCE .ROUTE Last administered on 11/17/16 08:26; Start 11/17/16 at 07:27; Stop 11/17/16 at 07:28; Status DC Heparin Sodium (Porcine) 10,000 unit STK-MED ONCE .ROUTE Last administered on 08:26; Start 11/17/16 at 07:27; Stop 11/17/16 at 07:28; Status DC Bisacodyl (Dulcolax Supp) 10 mg STK-MED ONCE .ROUTE Last administered on 08:26; Start 11/17/16 at 07:28; Stop 11/17/16 at 07:29; Status DC Ondansetron HCl (Zofran) 4 mg PRN Q6HRS PRN IV NAUSEA/VOMITING Last administered on 11/18/16 06:18; Start 11/17/16 at 08:14 Ondansetron HCl (Zofran) 4 mg PRN Q6HRS PRN IV Nausea; Start 11/17/16 at 08:15 ; Stop 11/17/16 at 18:00; Status DC Fentanyl Citrate (Fentanyl 2ml Vial) 25 mcg PRN Q5MIN PRN IV MILD PAIN Last administered on 11/17/16 09:57; Start 11/17/16 at 08:15; Stop 11/17/16 at 18:00 ; Status DC Fentanyl Citrate (Fentanyl 2ml Vial) 50 mcg PRN Q5MIN PRN IV MODERATE PAIN Last administered on 11/17/16 10:13; Start 11/17/16 at 08:15; Stop 11/17/16 at 18:00; Status DC Morphine Sulfate 1 mg 1 mg PRN Q10MIN PRN IV SEVERE PAIN; Start 11/17/16 at 08: 15; Stop 11/17/16 at 18:00; Status DC Lactated Ringer's (Iv Lactated Ringers) 1,000 ml @ 30 mls/hr Q24H IV ; Start at 08:15; Stop 11/17/16 at 15:31; Status DC Lidocaine HCl 2 ml 1X PRN PRN ID IV START; Start 11/17/16 at 08:15; Stop at 18:00; Status DC Hydromorphone HCl (Dilaudid) 0.5 mg PRN Q10MIN PRN IV SEV PAIN,Second choice; Start 11/17/16 at 08:15; Stop 11/17/16 at 18:00; Status DC Prochlorperazine Edisylate (Compazine) 5 mg PACU PRN PRN IV NAUSEA; Start 11/17 at 08:15; Stop 11/17/16 at 18:00; Status DC Desflurane 60 ml 60 ml STK-MED ONCE IH ; Start 11/17/16 at 08:17; Stop 11/17/16 at 08:18; Status DC Propofol (Diprivan) 20 ml @ As Directed STK-MED ONCE IV ; Start 11/17/16 at 08: 17; Stop 11/17/16 at 08:18; Status DC Ondansetron HCl (Zofran) 4 mg STK-MED ONCE .ROUTE ; Start 11/17/16 at 08:17; Stop 11/17/16 at 08:18; Status DC Dexamethasone Sodium Phosphate (Decadron) 20 mg STK-MED ONCE .ROUTE ; Start at 08:17; Stop 11/17/16 at 08:18; Status DC Lidocaine HCl 100 mg STK-MED ONCE .ROUTE ; Start 11/17/16 at 08:17; Stop at 08:18; Status DC Phenylephrine HCl 1 mg STK-MED ONCE IV ; Start 11/17/16 at 08:21; Stop 11/17/16 at 08:22; Status DC Glycopyrrolate (Robinul) 1 mg STK-MED ONCE .ROUTE ; Start 11/17/16 at 08:21; Stop 11/17/16 at 08:22; Status DC Neostigmine Methylsulfate 5 mg 5 mg STK-MED ONCE .ROUTE ; Start 11/17/16 at 08: 21; Stop 11/17/16 at 08:22; Status DC Cefazolin Sodium (Ancef 1gm Ivpb For Omni) 50 ml @ As Directed STK-MED ONCE IV ; Start 11/17/16 at 08:29; Stop 11/17/16 at 08:30; Status DC Sevoflurane (Ultane) 60 ml STK-MED ONCE IH ; Start 11/17/16 at 09:01; Stop 11/17 at 09:02; Status DC Enoxaparin Sodium (Lovenox 40mg Syringe) 40 mg Q24H SQ ; Start 11/17/16 at 09:30 ; Status UNV Sodium Chloride 3 ml 3 ml QSHIFT PRN IV AFTER MEDS AND BLOOD DRAWS; Start 11/17 at 09:30 Lactated Ringer's (Iv Lactated Ringers) 1,000 ml @ 100 mls/hr Q10H IV ; Start 11/17/16 at 09:24; Stop 11/17/16 at 18:02; Status DC Dextrose 12.5 gm PRN Q15MIN PRN IV SEE COMMENTS; Start 11/17/16 at 09:30 Acetaminophen/ Hydrocodone Bitart (Lortab 5/325) 1 tab PRN Q4HRS PRN PO MILD PAIN Last administered on 11/17/16 14:14; Start 11/17/16 at 09:30 Docusate Sodium (Colace) 100 mg BID PO Last administered on 11/18/16 09:55; Start 11/17/16 at 21:00 Morphine Sulfate 4 mg PRN Q2HR PRN IV PAIN Last administered on 11/18/16 06:18 ; Start 11/17/16 at 16:15 Metformin HCl (Glucophage) 850 mg BIDWMEALS PO Last administered on 11/18/16 09:54; Start 11/18/16 at 09:00 Triamcinolone Acetonide (Kenalog) 1 ayleen BID TP Last administered on 11/18/16 09:55; Start 11/18/16 at 09:00 Active Scripts Active Hydrocortisone Valerate 15 Gm Cream..g. 1 Ayleen TP BID Aspirin Ec (Aspirin) 81 Mg Tablet.dr 81 Mg PO DAILY Glucophage (Metformin Hcl) 850 Mg Tablet 850 Mg PO BIDWMEALS Prinivil (Lisinopril) 5 Mg Tablet 5 Mg PO DAILY Vitals/I & O Vital Sign - Last 24 Hours 11/17/16 11/17/16 11/17/16 11/17/16 10:20 10:45 10:50 11:00 Temp 96.8 96.8 Pulse 56 64 68 Resp 17 B/P 136/57 131/62 111/57 Pulse Ox 99 96 97 O2 Delivery Nasal Cannula Nasal Cannula Nasal Cannula Nasal Cannula O2 Flow Rate 2.0 2.0 2.0 2.0 11/17/16 11/17/16 11/17/16 11/17/16 11:15 11:30 12:00 12:06 Pulse 64 54 63 B/P 123/58 126/67 132/68 Pulse Ox 98 98 99 O2 Delivery Nasal Cannula Nasal Cannula Nasal Cannula Nasal Cannula O2 Flow Rate 2.0 2.0 2.0 2.0 11/17/16 11/17/16 11/17/16 11/17/16 12:30 13:00 14:14 15:00 Temp 98.0 98.0 Pulse 81 64 59 Resp 17 B/P 131/62 124/89 137/61 Pulse Ox 98 98 99 O2 Delivery Nasal Cannula Nasal Cannula Nasal Cannula Nasal Cannula O2 Flow Rate 2.0 2.0 2.0 2.0 11/17/16 11/17/16 11/17/16 11/17/16 15:40 16:21 19:00 20:00 Temp 98.1 98.1 Pulse 53 Resp 18 B/P 143/66 Pulse Ox 97 O2 Delivery Nasal Cannula Nasal Cannula Room Air Nasal Cannula O2 Flow Rate 2.0 2.0 1.0 11/17/16 11/18/16 11/18/16 11/18/16 23:00 00:23 00:53 03:00 Temp 98.3 98.1 98.3 98.1 Pulse 47 61 Resp 18 20 18 B/P 147/74 142/73 Pulse Ox 96 97 95 O2 Delivery Room Air Nasal Cannula Room Air O2 Flow Rate 1.0 1.0 11/18/16 11/18/16 11/18/16 11/18/16 03:02 06:18 06:48 07:00 Temp 97.9 97.9 Pulse 62 Resp 16 16 18 B/P 124/61 Pulse Ox 95 95 96 O2 Delivery Nasal Cannula Nasal Cannula Room Air Room Air O2 Flow Rate 1.0 11/18/16 09:55 Pulse 62 B/P 124/61 Intake and Output 11/17/16 11/17/16 11/18/16 15:00 23:00 07:00 Intake Total 400 ml 120 ml 0 ml Output Total 450 ml Balance 400 ml -330 ml 0 ml RADHA BELL MD Nov 18, 2016 10:17
[2016-11-18 11:00] VITALS: BP 141/68
[2016-11-18] MEDS: IV NORMAL SALINE 1000ML BAG 1,000 ML IV SCH (11:00)
[2016-11-18] MEDS ORDERED: INSULIN ASPART 300 UNITS/3 ML INSULN.PEN SQ SCH (12:00)
--- NOTE | 2016-11-18 13:06 | PDOC ---
SURGICAL PROGRESS NOTE Subjective Pt feels better today, ashtyn PO, ready to go home Vital Signs Vital Signs Date Time Temp Pulse Resp B/P Pulse Ox O2 Delivery O2 Flow Rate FiO2 11/18/16 11:00 98.1 64 18 141/68 95 Room Air 98.1 11/18/16 03:02 1.0 I&O Intake and Output 11/18/16 07:00 Intake Total 520 ml Output Total 450 ml Balance 70 ml Intake Oral 120 ml IV Total 400 ml Output Urine Total 450 ml # Voids 1 General: Alert, Oriented X3, Cooperative, No acute distress Abdomen: Soft, No tenderness Labs Laboratory Tests Test 11/16/16 13:55 11/16/16 17:30 11/16/16 21:15 11/17/16 05:00 Lactic Acid Level 0.9mmol/L (0.4-2.0) 0.7mmol/L (0.4-2.0) Procalcitonin 0.10ng/mL (0.00-0.10) Glucose (Fingerstick) 105mg/dL (70-99) Sodium Level 139mmol/L (136-145) Potassium Level 4.2mmol/L (3.5-5.1) Chloride Level 104mmol/L (98-107) Carbon Dioxide Level 24mmol/L (21-32) Anion Gap 11 (6-14) Blood Urea Nitrogen 7mg/dL (7-20) Creatinine 0.6mg/dL (0.6-1.0) Estimated GFR (Cockcroft-Gault) 103.4 Glucose Level 41mg/dL (70-99) Calcium Level 7.6mg/dL (8.5-10.1) Test 11/17/16 06:30 11/17/16 09:21 11/17/16 11:41 11/17/16 16:35 White Blood Count 6.0x10^3/uL (4.0-11.0) Red Blood Count 4.03x10^6/uL (3.50-5.40) Hemoglobin 12.6g/dL (12.0-15.5) Hematocrit 37.6% (36.0-47.0) Mean Corpuscular Volume 93fL (79-100) Mean Corpuscular Hemoglobin 31pg (25-35) Mean Corpuscular Hemoglobin Concent 33g/dL (31-37) Red Cell Distribution Width 13.5% (11.5-14.5) Platelet Count 282x10^3/uL (140-400) Neutrophils (%) (Auto) 53% (31-73) Lymphocytes (%) (Auto) 35% (24-48) Monocytes (%) (Auto) 10% (0-9) Eosinophils (%) (Auto) 0% (0-3) Basophils (%) (Auto) 1% (0-3) Neutrophils # (Auto) 3.2x10^3uL (1.8-7.7) Lymphocytes # (Auto) 2.1x10^3/uL (1.0-4.8) Monocytes # (Auto) 0.6x10^3/uL (0.0-1.1) Eosinophils # (Auto) 0.0x10^3/uL (0.0-0.7) Basophils # (Auto) 0.1x10^3/uL (0.0-0.2) Glucose (Fingerstick) 171mg/dL (70-99) 169mg/dL (70-99) 170mg/dL (70-99) Test 11/17/16 20:00 11/18/16 11:42 Glucose (Fingerstick) 134mg/dL (70-99) 131mg/dL (70-99) Laboratory Tests Test 11/17/16 16:35 11/17/16 20:00 11/18/16 11:42 Glucose (Fingerstick) 170mg/dL (70-99) 134mg/dL (70-99) 131mg/dL (70-99) Problem List Problems Medical Problems: (1) Cholecystitis, acute Status: Acute (2) Fever Status: Acute (3) Sepsis Status: Acute (4) Tachycardia Status: Acute Assessment/Plan s/p lap farshad OK to d/c f/u with [facility] in 2 weeks Problems: BRITTANI KIRKPATRICK MD Nov 18, 2016 13:06
--- NOTE | 2016-11-18 13:18 | PDOC3 ---
Discharge Summary Visit Information Date of Admission: Nov 16, 2016 Date of Discharge: Nov 18, 2016 Admitting Diagnosis Comment: 1. Cholelithiasis with cholecystitis, present on admission. s/p lap farshad POD # 1 2. Hypertension, currently normotensive. 3. DM 2 on metformin 4. Obesity, body mass index 39. Final Diagnosis Problems Medical Problems: (1) Cholecystitis, acute Status: Acute (2) Cholelithiasis Status: Acute (3) Fever Status: Acute (4) Sepsis Status: Acute (5) Tachycardia Status: Acute Brief Hospital Course Allergies Allergies Coded Allergies Type Severity Reaction Last Updated Verified No Known Drug Allergies 11/17/16 No Vital Signs Vital Signs Date Time Temp Pulse Resp B/P Pulse Ox O2 Delivery O2 Flow Rate FiO2 11/18/16 11:00 98.1 64 18 141/68 95 Room Air 98.1 11/18/16 03:02 1.0 Lab Results Laboratory Tests Test 11/16/16 13:55 11/16/16 17:30 11/16/16 21:15 11/17/16 05:00 Lactic Acid Level 0.9mmol/L (0.4-2.0) 0.7mmol/L (0.4-2.0) Procalcitonin 0.10ng/mL (0.00-0.10) Glucose (Fingerstick) 105mg/dL (70-99) Sodium Level 139mmol/L (136-145) Potassium Level 4.2mmol/L (3.5-5.1) Chloride Level 104mmol/L (98-107) Carbon Dioxide Level 24mmol/L (21-32) Anion Gap 11 (6-14) Blood Urea Nitrogen 7mg/dL (7-20) Creatinine 0.6mg/dL (0.6-1.0) Estimated GFR (Cockcroft-Gault) 103.4 Glucose Level 41mg/dL (70-99) Calcium Level 7.6mg/dL (8.5-10.1) Test 11/17/16 06:30 11/17/16 09:21 11/17/16 11:41 11/17/16 16:35 White Blood Count 6.0x10^3/uL (4.0-11.0) Red Blood Count 4.03x10^6/uL (3.50-5.40) Hemoglobin 12.6g/dL (12.0-15.5) Hematocrit 37.6% (36.0-47.0) Mean Corpuscular Volume 93fL (79-100) Mean Corpuscular Hemoglobin 31pg (25-35) Mean Corpuscular Hemoglobin Concent 33g/dL (31-37) Red Cell Distribution Width 13.5% (11.5-14.5) Platelet Count 282x10^3/uL (140-400) Neutrophils (%) (Auto) 53% (31-73) Lymphocytes (%) (Auto) 35% (24-48) Monocytes (%) (Auto) 10% (0-9) Eosinophils (%) (Auto) 0% (0-3) Basophils (%) (Auto) 1% (0-3) Neutrophils # (Auto) 3.2x10^3uL (1.8-7.7) Lymphocytes # (Auto) 2.1x10^3/uL (1.0-4.8) Monocytes # (Auto) 0.6x10^3/uL (0.0-1.1) Eosinophils # (Auto) 0.0x10^3/uL (0.0-0.7) Basophils # (Auto) 0.1x10^3/uL (0.0-0.2) Glucose (Fingerstick) 171mg/dL (70-99) 169mg/dL (70-99) 170mg/dL (70-99) Test 11/17/16 20:00 11/18/16 11:42 Glucose (Fingerstick) 134mg/dL (70-99) 131mg/dL (70-99) Laboratory Tests Test 11/17/16 16:35 11/17/16 20:00 11/18/16 11:42 Glucose (Fingerstick) 170mg/dL (70-99) 134mg/dL (70-99) 131mg/dL (70-99) Brief Hospital Course Ms. Pickett is a 55 old female admitted for flank pain, found to have farshad, Underwent lap farshad, tolerated procedure well. Ready to dc - 2 visits today Pls see my earlier progress note Discharge Information Condition at Discharge: Improved, Stable Disposition/Orders: D/C to Home Scheduled Aspirin (Aspirin Ec) 81 MG PO DAILY Hydrocortisone Valerate (Hydrocortisone Valerate) 1 AYAN TP BID Lisinopril (Prinivil) 5 MG PO DAILY Metformin Hcl (Glucophage) 850 MG PO BIDWMERADHA NULL MD Nov 18, 2016 13:18
--- NOTE | 2016-11-20 14:24 | PATHOLOGY ---
PATHOLOGY REPORT * * * * * * * * FINAL DIAGNOSIS: Gallbladder, laparoscopic cholecystectomy: - Cholelithiasis. - Chronic cholecystitis. - Focal gallbladder epithelial dysplasia. - Small adenomatous polyp. COMMENT: There is no evidence of malignancy. (JPM:; d/t: 11/20/16) REPORT ELECTRONICALLY SIGNED BY: Pradip Varela M.D. DATE/TIME: 11/20/2016 13:30 * * * * * * * * GROSS PATHOLOGY: Received in formalin labeled "Noe Pickett and gallbladder," is an 8.5 x 3.4 x 3.4 cm, intact gallbladder with thomas, slightly hemorrhagic, well vascularized, and glistening serosal surfaces. Opening the gallbladder reveals light green to pink-thomas and granular mucosa and an average wall thickness of 0.2 cm. Calculi are present and no masses are noted grossly. Resource Specialist Teacher sections from the body and fundus are submitted along with the proximal margin in cassette A1. (TTL; 11/19/2016) INITIAL CPT CODE(S): A; 75233 Professional services performed [place] [facility] [place] [address] Technical services performed by [facility] at [address] [place] [address]. SPECIMEN(S) RECEIVED: A.Gallbladder CLINICAL HISTORY: Right flank pain PATIENT: NOE PICKETT /AGE: 111/20/1960 (Age: 55) PATIENT #: [id number] ALT CASE #: SPECIMEN COLLECTION DATE: 11/17/2016 SPECIMEN RECEIVED DATE: 11/19/2016 [facility] - [id number] [place] [address] - PHONE: [phone] * * * END OF REPORT * * *
== END 2016-11-18 16:00 | disposition home or self-care (01) | DRG 419 ==
LOC: ER 09:31 → ED HOLD 13:09 → 4 NORTH 16:30
PROVIDERS: ADMIT Internal Medicine; ATTEND Internal Medicine
PROC: BF131ZZ Fluoroscopy of Gallbladder and Bile Ducts using Low Osmolar Contrast (ICD-10-PCS; 2016-11-17)
PROC: 0FT44ZZ Resection of Gallbladder, Percutaneous Endoscopic Approach (ICD-10-PCS; principal; 2016-11-17 08:00)
DX: K80.00 Calculus of gallbladder with acute cholecystitis without obstruction (principal); E11.9 Type 2 diabetes mellitus without complications; E66.9 Obesity, unspecified; I10 Essential (primary) hypertension; Z68.39 Body mass index [BMI] 39.0-39.9, adult; Z79.84 Long term (current) use of oral hypoglycemic drugs; Z80.9 Family history of malignant neoplasm, unspecified; Z83.3 Family history of diabetes mellitus; R00.0 Tachycardia, unspecified
CPT/HCPCS: 36415; 74300; 76705; 80048; 80053; 81001; 81025; 82947; 83605; 83690; 84145; 85027; 88304; 94250; 94640; 96374; 96375; 96376; C1782; J0690; J1100; J1650; J1815; J1885; J1956; J2270; J2370; J2405; J2704; J2710; J3010; J3490; J7030; Q9967; 99285-25